=== PATIENT | female | born 1935 | race Caucasian/White ===

== ENCOUNTER 2020-11-27 07:32 | Outpatient (REF) | payer MEDICARE, SELFPAY ==
[2020-11-27 08:19] LABS: MANUAL DIFF FLAG NO
[2020-11-27 08:23] LABS: Basophils Percent Auto 0.4 % (0-2); Eosinophils Absolute Auto 0.3 X10*3/uL (0.0-0.4); Eosinophils Percent Auto 4.3 % (0-4); Hematocrit 45.1 % (37-47); Hemoglobin 14.6 g/dl (12.0-16.0); Imm Gran Abs Auto 0.02 X10*3/uL (0.00-0.03); Imm Gran Pct Auto 0.3 % (0.0-0.4); Lymphocytes Absolute Auto 2.3 X10*3/uL (1.2-4.9); Lymphocytes Percent Auto 29.9 % (20-40); Mean Corpuscular HGB Conc 32.4 g/dl (31.0-35.0); Mean Corpuscular Hemoglobin 31.9 pg (27.0-33.0); Mean Corpuscular Volume 98.5 fL (80-98); Mean Platelet Volume 9.6 fL (9.4-12.3); Monocytes Absolute Auto 0.5 X10*3/uL (0.1-1.2); Monocytes Percent Auto 6.6 % (2-11); Neutrophils Absolute Auto 4.5 X10*3/uL (2.0-8.3); Neutrophils Percent Auto 58.5 % (45-73); Platelet Count 233 X10*3/uL (160-400); Red Blood Count 4.58 X10*6/uL (4.20-5.50); Red Cell Distribution Width 13.6 % (11.0-16.0); White Blood Count 7.6 X10*3/uL (4.8-10.8)
[2020-11-27 08:43] LABS: Alanine Aminotransferase 30 U/L (0-31); Albumin Level 4.3 g/dL (3.5-5.0); Alkaline Phosphatase 71 U/L (39-117); Anion Gap 12 (12-20); Aspartate Amino Transferase 37 U/L (5-31); Bilirubin Total 0.4 mg/dL (0.0-1.0); Blood Urea Nitrogen 21 mg/dL (9-16); C Reactive Protein 0.09 mg/dL (< or = 0.50); Calcium 9.6 mg/dL (8.4-10.2); Carbon Dioxide 31 mmol/L (22-29); Chloride 105 mmol/L (96-108); Cholesterol 184 mg/dL; Estimated Glomerular Filt Rate 58; Glucose Random 91 mg/dL (60-115); HDL Cholesterol 77 mg/dL; LDL Cholesterol Calculated 95 mg/dl; Potassium 4.5 mmol/L (3.3-5.1); Sodium 143 mmol/L (135-145); Total Protein 6.9 g/dL (6.5-8.0); Triglycerides 63 mg/dL
[2020-11-27 08:44] LABS: B Type Natriuretic Peptide 141 pg/mL (<100)
[2020-11-27 09:03] LABS: Free T4 (Free Thyroxine) 1.09 ng/dL (0.71-1.85); Thyroid Stimulating Hormone 1.26 uIU/mL (0.32-4.0); Vitamin D 25-OH Total 65.6 ng/mL (>30)
[2020-11-27 09:09] LABS: Erythrocyte Sedimentation Rate 4 MM/HR (0-20)
[2020-11-27 09:33] LABS: Vitamin B12 991 pg/mL (200-900)
== END 2020-11-27 07:33 | disposition home or self-care (01) ==
LOC: HO.LAB 07:32
PROVIDERS: PCP Internal Medicine; Visit Provider Internal Medicine
DX: I42.2 Other hypertrophic cardiomyopathy (principal); E78.00 Pure hypercholesterolemia, unspecified
CPT/HCPCS: 36415; 80053; 80061; 82306; 82607; 82746; 83880; 84439; 84443; 85025; 85652; 86140

== ENCOUNTER 2021-03-26 13:10 | Outpatient (REF) | payer MEDICARE, SELFPAY | END 2021-03-26 13:11 | disposition home or self-care (01) | LOC: HO.LAB 13:10 | PROVIDERS: PCP Internal Medicine; Visit Provider Internal Medicine | DX: Z20.822 Contact with and (suspected) exposure to COVID-19 (principal) | CPT/HCPCS: C9803; U0003; U0005 ==

== ENCOUNTER 2021-05-28 15:15 | Outpatient (REF) | payer MEDICARE, SELFPAY ==
[2021-05-28 15:31] LABS: MANUAL DIFF FLAG NO
[2021-05-28 15:36] LABS: Basophils Absolute Auto 0.1 X10*3/uL (0.0-0.2); Basophils Percent Auto 0.7 % (0-2); Eosinophils Absolute Auto 0.2 X10*3/uL (0.0-0.4); Eosinophils Percent Auto 2.9 % (0-4); Hematocrit 44.3 % (37.0-47.0); Hemoglobin 14.5 g/dl (12.0-16.0); Imm Gran Abs Auto 0.02 X10*3/uL (0.00-0.03); Imm Gran Pct Auto 0.2 % (0.0-0.4); Lymphocytes Percent Auto 24.4 % (20-40); Mean Corpuscular HGB Conc 32.7 g/dl (31.0-35.0); Mean Corpuscular Hemoglobin 31.3 pg (27.0-33.0); Mean Corpuscular Volume 95.7 fL (80.0-98.0); Mean Platelet Volume 9.5 fL (9.4-12.3); Monocytes Absolute Auto 0.7 X10*3/uL (0.1-1.2); Monocytes Percent Auto 8.2 % (2-11); Neutrophils Absolute Auto 5.2 x10*3/uL (2.0-8.3); Neutrophils Percent Auto 63.6 % (45-73); Platelet Count 246 X10*3/uL (160-400); Red Blood Count 4.63 X10*6/uL (4.20-5.50); Red Cell Distribution Width 13.9 % (11.0-16.0); White Blood Count 8.2 X10*3/uL (4.8-10.8)
[2021-05-28 15:50] LABS: D Dimer High Sensitivity < 150 NG/ML
[2021-05-28 15:51] LABS: Alanine Aminotransferase 26 U/L (0-31); Albumin Level 4.4 g/dL (3.5-5.0); Alkaline Phosphatase 75 U/L (39-117); Anion Gap 14 (12-20); Aspartate Amino Transferase 38 U/L (5-31); Bilirubin Total 0.3 mg/dL (0.0-1.0); Blood Urea Nitrogen 23 mg/dL (9-16); C Reactive Protein 0.08 mg/dL (< or = 0.50); Calcium 9.9 mg/dL (8.4-10.2); Carbon Dioxide 28 mmol/L (22-29); Chloride 104 mmol/L (96-108); Estimated Glomerular Filt Rate > 60; Glucose Random 96 mg/dL (60-115); Potassium 5.1 mmol/L (3.3-5.1); Sodium 141 mmol/L (135-145); Total Protein 7.3 g/dL (6.5-8.0)
[2021-05-28 16:01] LABS: B Type Natriuretic Peptide 245 pg/mL (<100)
[2021-05-28 16:12] LABS: Thyroid Stimulating Hormone 1.07 uIU/mL (0.32-4.0)
[2021-05-28 16:34] LABS: Erythrocyte Sedimentation Rate 7 MM/HR (0-20)
== END 2021-05-28 15:16 | disposition home or self-care (01) ==
LOC: HO.LAB 15:15
PROVIDERS: PCP Internal Medicine; Visit Provider Internal Medicine
DX: M79.89 Other specified soft tissue disorders (principal)
CPT/HCPCS: 36415; 80053; 83880; 84443; 85025; 85379; 85652; 86140

== ENCOUNTER 2022-04-30 12:48 | Outpatient (REF) | payer MEDICARE, SELFPAY ==
--- NOTE | ~2022-04-30 | MM_ITS ---
EXAMINATION: BONE DENSITOMETRY CLINICAL INDICATION: Age-related osteoporosis without current pathological fracture. COMPARISON: Previous BD dated 03/12/2020 and baseline BD dated 10/23/2008. TECHNIQUE: Using a Xtellus DXA System (software version: 13.1) manufactured by [employer], dual-energy x-ray absorptiometry was performed of the lumbar spine and left hip. The images are of good technical quality. Summary results are attached. FINDINGS: AP SPINE L1-L3 (excluding L4): The data of L1-L4 has been changed to exclude the L4 vertebral body, because degenerative sclerosis at this level may cause overestimation of lumbar spine density. Current: BMD 1.203 g/cm2, Z-score 2.8, T-score 0.3, normal, 1.8% increase from previous, 8.9% decrease from baseline (<5% change is not significant). Prior: BMD 1.182 g/cm2. Baseline: BMD 1.321 g/cm2. LEFT FEMUR, NECK: Current: BMD 0.469 g/cm2, Z-score -1.3, T-score -4.1, osteoporosis. Prior: BMD 0.582 g/cm2. Baseline: BMD 0.639 g/cm2. LEFT FEMUR, TOTAL: Current: BMD 0.505 g/cm2, Z-score -1.2, T-score -4.0, osteoporosis, 19.1% decrease from previous, 27.7% decrease from baseline (<5% change is not significant). Prior: BMD 0.624 g/cm2. Baseline: BMD 0.698 g/cm2. IDENTIFIED RISK FACTORS: Menopause, low body weight. HISTORY OF FRACTURE: None listed. MEDICATIONS: Calcium supplements or multivitamin, vitamin D, bisphosphonate. MM/XR DEXA axial skeleton IMPRESSION: 1. DIAGNOSIS: Osteoporosis based on the lowest T-score value of -4.1 in the femoral neck applying World Health Organization criteria. 2. 10-YEAR FRACTURE RISK PREDICTION, FRAX: According to the guidelines, FRAX calculation should only be performed on patients in the osteopenia bone density category. Therefore, FRAX was not performed on this patient. 3. Treatment Recommendations: NOF guidelines recommend consideration for treatment in postmenopausal women and men age 50 and older presenting with the following: -A hip or vertebral (clinical or morphometric) fracture. -T-score less than or equal to -2.5 at the femoral neck or spine after appropriate evaluation to exclude secondary causes. -Low bone mass at the hip or spine and a 10-year fracture probability by FRAX of greater than or equal to 3% for hip fracture or greater than or equal to 20% for major osteoporotic fracture based on the [place] adapted WHO algorithm. 4. Other Recommendations: All treatment decisions require clinical judgment and consideration of individual patient factors, including patient preferences, comorbidities, previous drug use, risk factors not captured in the FRAX model (e.g. frailty, falls, vitamin D deficiency, increased bone turnover, interval significant decline in bone density) and possible under or overestimation of fracture risk by FRAX. Additional medical evaluation for secondary cause of low bone mineral density may be appropriate. FUTURE SCAN RECOMMENDATION: People with diagnosed cases of osteoporosis or at high risk for fracture should have regular bone mineral density tests. For patients eligible for Medicare, routine testing is allowed once every 2 years. The testing frequency can be increased to one year for patients who have rapidly progressing disease, those who are receiving or discontinuing medical therapy to restore bone mass, or have additional risk factors.
== END 2022-04-30 12:49 | disposition home or self-care (01) ==
LOC: HO.MAMMO 12:48
PROVIDERS: Visit Provider Internal Medicine
DX: M81.0 Age-related osteoporosis without current pathological fracture (principal)
CPT/HCPCS: 77080

== ENCOUNTER 2022-05-06 08:02 | Outpatient (REF) | payer MEDICARE, SELFPAY ==
[2022-05-06 08:18] LABS: MANUAL DIFF FLAG NO
[2022-05-06 08:44] LABS: Basophils Percent Auto 0.4 % (0-2); Eosinophils Absolute Auto 0.2 X10*3/uL (0.0-0.4); Eosinophils Percent Auto 2.7 % (0-4); Hematocrit 44.2 % (37.0-47.0); Hemoglobin 14.5 g/dl (12.0-16.0); Imm Gran Abs Auto 0.03 X10*3/uL (0.00-0.03); Imm Gran Pct Auto 0.4 % (0.0-0.4); Lymphocytes Absolute Auto 2.3 X10*3/uL (1.2-4.9); Lymphocytes Percent Auto 27.7 % (20-40); Mean Corpuscular HGB Conc 32.8 g/dl (31.0-35.0); Mean Corpuscular Hemoglobin 32.2 pg (27.0-33.0); Mean Platelet Volume 9.7 fL (9.4-12.3); Monocytes Absolute Auto 0.6 X10*3/uL (0.1-1.2); Monocytes Percent Auto 7.3 % (2-11); Neutrophils Absolute Auto 5.2 x10*3/uL (2.0-8.3); Neutrophils Percent Auto 61.5 % (45-73); Platelet Count 230 X10*3/uL (160-400); Red Blood Count 4.51 X10*6/uL (4.20-5.50); White Blood Count 8.5 X10*3/uL (4.8-10.8)
[2022-05-06 09:14] LABS: B Type Natriuretic Peptide 218 pg/mL (<100)
[2022-05-06 09:17] LABS: Alanine Aminotransferase 32 U/L (0-31); Albumin Level 4.5 g/dL (3.5-5.0); Alkaline Phosphatase 77 U/L (39-117); Anion Gap 14 (12-20); Aspartate Amino Transferase 35 U/L (5-31); Bilirubin Total 0.6 mg/dL (0.0-1.0); Blood Urea Nitrogen 23 mg/dL (9-16); Calcium 9.6 mg/dL (8.4-10.2); Carbon Dioxide 29 mmol/L (22-29); Chloride 104 mmol/L (96-108); Cholesterol 180 mg/dL; Estimated Glomerular Filt Rate 50; Glucose Random 95 mg/dL (60-115); HDL Cholesterol 69 mg/dL; LDL Cholesterol Calculated 101 mg/dl; Potassium 4.9 mmol/L (3.3-5.1); Sodium 142 mmol/L (135-145); Total Protein 7.1 g/dL (6.5-8.0); Triglycerides 50 mg/dL
[2022-05-06 09:42] LABS: Thyroid Stimulating Hormone 1.19 uIU/mL (0.32-4.0); Vitamin D 25-OH Total 57.2 ng/mL (>30)
[2022-05-06 10:04] LABS: Folate > 20.0 ng/mL (> or = 4.0); Vitamin B12 1252 pg/mL (200-900)
== END 2022-05-06 08:03 | disposition home or self-care (01) ==
LOC: HO.LAB 08:02
PROVIDERS: Absent Provider Internal Medicine; PCP Internal Medicine; Visit Provider Internal Medicine
DX: F41.1 Generalized anxiety disorder (principal); I42.2 Other hypertrophic cardiomyopathy; E78.00 Pure hypercholesterolemia, unspecified
CPT/HCPCS: 36415; 80053; 80061; 82306; 82607; 82746; 83880; 84439; 84443; 85025

== ENCOUNTER 2023-04-06 08:47 | Outpatient (REF) | payer MEDICARE, SELFPAY ==
[2023-04-06 09:22] LABS: MANUAL DIFF FLAG NO
[2023-04-06 09:46] LABS: Basophils Absolute Auto 0.1 X10*3/uL (0.0-0.2); Basophils Percent Auto 0.6 % (0-2); Eosinophils Absolute Auto 0.2 X10*3/uL (0.0-0.4); Eosinophils Percent Auto 2.7 % (0-4); Hematocrit 43.3 % (37.0-47.0); Hemoglobin 14.1 g/dl (12.0-16.0); Imm Gran Abs Auto 0.02 X10*3/uL (0.00-0.03); Imm Gran Pct Auto 0.2 % (0.0-0.4); Lymphocytes Absolute Auto 2.1 X10*3/uL (1.2-4.9); Lymphocytes Percent Auto 25.6 % (20-40); Mean Corpuscular HGB Conc 32.6 g/dl (31.0-35.0); Mean Corpuscular Hemoglobin 32.3 pg (27.0-33.0); Mean Corpuscular Volume 99.3 fL (80.0-98.0); Monocytes Absolute Auto 0.8 X10*3/uL (0.1-1.2); Monocytes Percent Auto 9.3 % (2-11); Neutrophils Absolute Auto 5.1 x10*3/uL (2.0-8.3); Neutrophils Percent Auto 61.6 % (45-73); Platelet Count 228 X10*3/uL (160-400); Red Blood Count 4.36 X10*6/uL (4.20-5.50); Red Cell Distribution Width 13.2 % (11.0-16.0); White Blood Count 8.2 X10*3/uL (4.8-10.8)
[2023-04-06 10:38] LABS: Appearance Urine Turbid; Color Urine Yellow; Glucose Urine UA Negative (Negative); Leukocyte Esterase Urine Negative (Negative); Nitrite Urine Negative (Negative); Urine Blood Negative (Negative); Urine Ketones Negative (Negative); Urine Protein Negative (Neg-Trace)
[2023-04-06 10:39] LABS: Alanine Aminotransferase 22 U/L (0-31); Albumin Level 4.2 g/dL (3.5-5.0); Alkaline Phosphatase 65 U/L (39-117); Anion Gap 11 (12-20); Aspartate Amino Transferase 31 U/L (5-31); Bilirubin Total 0.5 mg/dL (0.0-1.0); Blood Urea Nitrogen 27 mg/dL (9-16); Calcium 9.3 mg/dL (8.4-10.2); Carbon Dioxide 29 mmol/L (22-29); Chloride 105 mmol/L (96-108); Cholesterol 192 mg/dL (<200); Estimated Glomerular Filt Rate 50; Glucose Random 97 mg/dL (60-115); HDL Cholesterol 72 mg/dL (>40); LDL Cholesterol Calculated 110 mg/dL (<100); Potassium 4.5 mmol/L (3.3-5.1); Sodium 140 mmol/L (135-145); Triglycerides 54 mg/dL (<150)
[2023-04-06 10:42] LABS: Bacteria Urine None Seen (None Seen); Hyaline Casts Urine 0-2 /LPF (0-2); RBC Urine 0-2 /HPF (0-2); Squamous Epithelial Cell Urine 0-2 /HPF (0-2); WBC Urine 0-5 /HPF (0-5)
[2023-04-06 10:45] LABS: Free T4 (Free Thyroxine) 1.03 ng/dL (0.71-1.85); Thyroid Stimulating Hormone 1.14 uIU/mL (0.32-4.0); Vitamin D 25-OH Total 70.6 ng/mL (>30)
[2023-04-06 10:50] LABS: Folate 14.9 ng/mL (> or = 4.0); Vitamin B12 921 pg/mL (200-900)
== END 2023-04-06 08:48 | disposition home or self-care (01) ==
LOC: HO.LAB 08:47
PROVIDERS: PCP Internal Medicine; Visit Provider Internal Medicine
DX: I42.2 Other hypertrophic cardiomyopathy (principal); E78.00 Pure hypercholesterolemia, unspecified; M81.0 Age-related osteoporosis without current pathological fracture
CPT/HCPCS: 36415; 80053; 80061; 81001; 82306; 82607; 82746; 84439; 84443; 85025

== ENCOUNTER 2023-04-17 13:17 | Outpatient (AMB) | payer MEDICARE, SELFPAY ==
[2023-04-17 13:48] VITALS: BP 134/72; PULSE 71; O2SAT 97; BMI 22.1
--- NOTE | 2023-04-17 13:48 | AM.OFFWIN_ITS ---
Intake Vital Signs 04/17/23 13:48 Height 4 ft 9 in Weight 102 lb BMI 22.1 BP 134/72 Blood Pressure Location Lt brachial Position Sitting Pulse 71 Pulse Source Pulse Oximeter Pulse Oximetry (%) 97 Oxygen Delivery Method Room Air Intake Visit Reasons: EP Fell/ Lower RT leg injury DOI 04/09 Intake Note: Patient fell and injured her right lower leg on 04/09. Patient Tobacco Use Status: Never used Tobacco Allergies erythromycin base Allergy (Unknown, Verified 04/17/23 13:50) Unknown trazodone Allergy (Unknown, Verified 04/17/23 13:50) Unknown Do you need a note to return to daycare/school/sports/work: No HPI HPI Comments History of Present Illness Details This is a 88-year-old female who presents to the office today for sick visit. Patient complaining of right lower extremity bruising following a fall that occurred on 04/09/2023. Patient states she tripped and fell on to her right knee approximately 1 week ago. She states that she developed right knee swelling and mild ecchymosis at that time. Her swelling and pain have improved the patient has increased bruising of the entire right lower extremity. She denies any lightheadedness/dizziness or chest pain/shortness of breath. She denies using any anticoagulation other than aspirin but she states that she stopped taking her aspirin 5 days ago due to the bruising. 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 Hyperparathyroidism Hearing loss Hypertrophic cardiomyopathy Peripheral vascular disease Osteoporosis Surgical History History of myringotomy History of colonoscopy Family History (Updated 12/30/22 @ 15:39 by Piedad Alston CMA) Father Leukemia Mother Dementia Stroke Social History Housing: House Alcohol intake: current Alcohol intake frequency: a few times a month Patient Tobacco Use Status: Never used Tobacco e-Cigarette/Vaping Use: Never Used Second Hand Smoke Exposure: No service: No Current occupational status: retired Cognitive needs: No Hearing needs: No Vision needs: Yes Review of Systems Const All systems reviewed & are unremarkable except as noted in HPI and below Reports no additional complaints Eyes Reports no additional complaints ENT Reports no additional complaints Card Reports no additional complaints Resp Reports no additional complaints GI Reports no additional complaints Reports no additional complaints Musc Reports no additional complaints Skin/Breast Reports system reviewed and no additional complaints, except as documented Neuro Reports no additional complaints Psych Reports no additional complaints Endo Reports no additional complaints Angelito/Lymph Reports no additional complaints Aller/Immun Reports no additional complaints Physical Exam Vital Signs: Last Vital Signs Pulse 71 04/17/23 13:48 BP 134/72 04/17/23 13:48 Pulse Ox 97 04/17/23 13:48 Oxygen Delivery Method Room Air 04/17/23 13:48 BMI result Body Mass Index 22.1 Const Other: Vital signs reviewed. Constitutional: Non-toxic appearing. No acute distress. Well-developed and well-nourished. HEENT: Normocephalic and atraumatic. Skin: Significant ecchymosis of the right lower extremity extending from the superior pole of the patella down to her ankle. No significant bony tenderness to palpation of the knee, tibial/fibula, or ankle. No calf tenderness to palpation or swelling. Neck: Full and painless range of motion. No cervical lymphadenopathy. Cardio: Regular rate. No lower extremity edema. No JVD. Pulmonary: No respiratory distress. No accessory muscle usage. Gastrointestinal: Soft, nontender, and nondistended in all 4 quadrants. Genitourinary: No CVA tenderness. Musculoskeletal: Normal range of motion in joints throughout the body. No deformity or other signs of injury. Neuro: Alert and oriented x4. Cranial nerves 2-12 grossly intact. No focal deficits appreciated. Psych: Normal mood and affect. Assessment & Plan Assessment & Plan (1) Right leg injury: Code(s): S89.91XA - Unspecified injury of right lower leg, initial encounter Qualifiers: Encounter type: initial encounter Qualified Code(s): S89.91XA - Unspecified injury of right lower leg, initial encounter Plan This is an 88-year-old female presenting to the office with right lower extremity ecchymosis following a fall that occurred on 04/09/2023. Patient states the pain and the swelling have significantly improved but she started to develop ecchymosis from her knee to her ankle. She does not utilize anticoagulation but she takes a baby aspirin, which she stopped taking 5 days ago because of the ecchymosis. She has no calf swelling or calf tenderness to palpation to suggest DVT. She has no significant bony tenderness to palpation to suggest fracture or dislocation. Patient very likely just has a large contusion secondary to her fall, which was worsened by gravity and heat application as well as aspirin. She has no lightheadedness/dizziness or chest pain/shortness of breath to suggest acute anemia. We will obtain an x-ray of the right knee, right tibial/fibula, and right ankle to definitively rule out acute bony process. I recommended application of ice as well as elevation of the right lower extremity. Patient should discontinue aspirin use until the bruising has resolved. Patient feels comfortable going home and I do not bel ieve the patient has a life-threatening diagnosis at this time. Patient was advised to proceed to the emergency room if she were to develop persistent/worsening symptoms, calf swelling, or any symptoms of anemia. Patient verbalized her understanding and she is in agreement with the plan. Orders: Orders XR tibia fibula RT 2V Today S89.91XA - Unspecified injury of right lower leg, initial encounter XR knee RT 2V Today S89.91XA - Unspecified injury of right lower leg, initial encounter XR ankle RT 2V Today S89.91XA - Unspecified injury of right lower leg, initial encounter Coding Level of Care Code Est Pt Level 3 (12328) Diagnoses Injury of right lower extremity, initial encounter S89.91XA Encounter type: initial encounter
== END 2023-04-17 14:32 | disposition home or self-care (01) ==
PROVIDERS: PCP Internal Medicine; Visit Provider Physician Assistant Medical
DX: S89.91XA Unspecified injury of right lower leg, initial encounter (principal)
CPT/HCPCS: 99213

== ENCOUNTER 2023-04-17 14:11 | Outpatient (REF) | payer MEDICARE, SELFPAY ==
--- NOTE | ~2023-04-17 | XR_ITS ---
EXAMINATION: Right tibia and fibula, right ankle and right knee. CLINICAL INDICATION: Injury, pain. COMPARISON: None. TECHNIQUE: Right tibia and fibula 2 views. Right knee 2 views. Right ankle 3 views. FINDINGS: Right knee: There is loss of tricompartment joint space with lateral and patellofemoral compartment periarticular spurring. There is calcification of the menisci. No bony erosive changes. Minimal suprapatellar joint effusion. Right tibia and fibula: The bony cortex is intact. Normal density seen throughout the tibial and fibular bone marrow. The soft tissues are normal. No fracture seen. Right ankle: The ankle mortise and subtalar joints are normal. There is mild lateral malleolar soft tissue swelling. No visible acute fracture or dislocation seen. XR/XR tibia fibula RT 2V IMPRESSION: 1. No acute fracture or dislocation right knee, right tibia and fibula. 2. Degenerative tricompartment changes with periarticular spurring right knee. Minimal suprapatellar joint effusion. 3. There is mild lateral malleolar soft tissue swelling but no visible acute fracture or dislocation right ankle.
--- NOTE | ~2023-04-17 | XR_ITS ---
EXAMINATION: Right tibia and fibula, right ankle and right knee. CLINICAL INDICATION: Injury, pain. COMPARISON: None. TECHNIQUE: Right tibia and fibula 2 views. Right knee 2 views. Right ankle 3 views. FINDINGS: Right knee: There is loss of tricompartment joint space with lateral and patellofemoral compartment periarticular spurring. There is calcification of the menisci. No bony erosive changes. Minimal suprapatellar joint effusion. Right tibia and fibula: The bony cortex is intact. Normal density seen throughout the tibial and fibular bone marrow. The soft tissues are normal. No fracture seen. Right ankle: The ankle mortise and subtalar joints are normal. There is mild lateral malleolar soft tissue swelling. No visible acute fracture or dislocation seen. XR/XR ankle RT 2V IMPRESSION: 1. No acute fracture or dislocation right knee, right tibia and fibula. 2. Degenerative tricompartment changes with periarticular spurring right knee. Minimal suprapatellar joint effusion. 3. There is mild lateral malleolar soft tissue swelling but no visible acute fracture or dislocation right ankle.
--- NOTE | ~2023-04-17 | XR_ITS ---
EXAMINATION: Right tibia and fibula, right ankle and right knee. CLINICAL INDICATION: Injury, pain. COMPARISON: None. TECHNIQUE: Right tibia and fibula 2 views. Right knee 2 views. Right ankle 3 views. FINDINGS: Right knee: There is loss of tricompartment joint space with lateral and patellofemoral compartment periarticular spurring. There is calcification of the menisci. No bony erosive changes. Minimal suprapatellar joint effusion. Right tibia and fibula: The bony cortex is intact. Normal density seen throughout the tibial and fibular bone marrow. The soft tissues are normal. No fracture seen. Right ankle: The ankle mortise and subtalar joints are normal. There is mild lateral malleolar soft tissue swelling. No visible acute fracture or dislocation seen. XR/XR knee RT 2V IMPRESSION: 1. No acute fracture or dislocation right knee, right tibia and fibula. 2. Degenerative tricompartment changes with periarticular spurring right knee. Minimal suprapatellar joint effusion. 3. There is mild lateral malleolar soft tissue swelling but no visible acute fracture or dislocation right ankle.
== END 2023-04-17 14:12 | disposition home or self-care (01) ==
LOC: HO.HMGCX 14:11
PROVIDERS: Visit Provider Physician Assistant Medical
DX: S89.91XA Unspecified injury of right lower leg, initial encounter (principal); M25.461 Effusion, right knee; R60.0 Localized edema
CPT/HCPCS: 73560; 73590; 73600

== ENCOUNTER 2023-07-06 14:03 | Outpatient (AMB) | payer MEDICARE, SELFPAY ==
[2023-07-06 14:06] VITALS: BP 128/68; PULSE 72; O2SAT 97; BMI 22.1
--- NOTE | 2023-07-06 14:06 | MHC.PC.OV ---
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 Allergies erythromycin base Allergy (Unknown, Verified 07/06/23 14:06) Unknown trazodone Allergy (Unknown, Verified 07/06/23 14:06) Unknown Medication List - Last Reconciled 07/06/23 by Nayeli Whitehead MD alendronate (Fosamax) 70 mg PO QWEEK 90 days ascorbic acid (vitamin C) 500 mg PO DAILY aspirin (Adult Aspirin Regimen) 81 mg PO DAILY calcium carbonate 600 mg PO DAILY cholecalciferol (vitamin D3) 25 mcg PO DAILY fluticasone propionate 50 mcg/actuation (Flonase Allergy Relief) 1 spray intranasal DAILY glucosamine sulfate (Glucosamine) 500 mg PO DAILY metoprolol succinate ER 25 mg PO DAILY mirtazapine 30 mg PO BEDTIME multivitamin 1 tab PO DAILY omega-3 fatty acids (Fish Oil Concentrate) 1,000 mg PO DAILY topiramate 25 mg PO BID Tobacco use date assessed: 07/06/23 Fall risk assessment: 1 Fall in past year (04/09/23) Last assessed Fall Risk: 07/06/23 HPI 6mth f/u HPI Details 88-year-old female with a history of osteoporosis hypertrophic cardiomyopathy generalized anxiety disorder coming in for follow-up. Last seen in December 2022. Review of the notes has followed up with Cardiology Dr. Isaacs echocardiogram done in March no changes stable left ventricular function diagnosis of primary hypertension and mitral valve insufficiency on metoprolol patient has mitral valve insufficiency and tricuspid valve insufficiency question of echodensity on the mitral valve in which recommended SUDHIR but would like to hold off. But this has been unchanged since 2019. April 2023 Urgent Center visit right lower extremity bruising following a fall 04/09/2023. X-rays done showed arthritis but no fractures. With regards to the postnasal drip patient was seen December 2022 by the ENT hearing test hearing has recovered no effusion. new cardiology Dr. Diaz. 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 Hyperparathyroidism Hearing loss Hypertrophic cardiomyopathy Peripheral vascular disease Osteoporosis Surgical History History of myringotomy History of colonoscopy Family History (Updated 12/30/22 @ 15:39 by Piedad Alston [facility]) Father Leukemia Mother Dementia Stroke Social History Housing: House Alcohol intake: current Alcohol intake frequency: a few times a month Patient Tobacco Use Status: Never used Tobacco e-Cigarette/Vaping Use: Never Used Second Hand Smoke Exposure: No service: No Current occupational status: retired Cognitive needs: No Hearing needs: No Vision needs: Yes Questionnaire PHQ-9 Over the last 2 weeks, how often have you been bothered by any of the following problems? 1. Little interest or pleasure in doing things: not at all 2. Feeling down, depressed, or hopeless: not at all 3. Trouble falling or staying asleep, or sleeping too much: not at all 4. Feeling tired or having little energy: not at all 5. Poor appetite or overeating: not at all 6. Feeling bad about yourself - or that you are a failure or have let yourself or your family down: not at all 7. Trouble concentrating on things, such as reading the newspaper or watching television: not at all 8. Moving or speaking so slowly that other people could have noticed. Or the opposite - being so fidgety or restless that you have been moving around a lot more than usual: not at all 9. Thoughts that you would be better off or of hurting yourself in some way: not at all Total score: 0 Depression Screening Interpretation: Negative Depression Screening Done: Yes 89214 - PHQ-9 Billing: Yes Source: Developed by Drs. Ronald Rosenbaum, Camilla Hedrick, Herb Rock and colleagues, with an educational maritza from [employer]. Thrive Questionnaire Date Thrive assessed: 12/30/22 AUDIT C Alcohol Use Questionnaire (AUDIT-C) 1. How often do you have a drink containing alcohol?: 2-4 times a month 2. How many drinks containing alcohol do you have on a typical day when you are drinking?: 1 or 2 3. How often do you have six or more drinks on one occasion?: Never Total Score: 2 Score Reviewed/Action Taken: No NIYA-7 AMB Questionnaire NIYA-7 Date NIYA - 7 assessed: 07/06/23 Feeling nervous, anxious, or on edge: 0 = Not at all Not being able to stop or control worryin = Not at all Worrying too much about different things: 0 = Not at all Trouble relaxin = Not at all Being so restless that it is hard to sit still: 0 = Not at all Becoming easily annoyed or irritable: 0 = Not at all Feeling afraid as if something awful might happen: 0 = Not at all Total NIYA-7 score (0-4 normal; 5-9 mild; 10-14 moderate; 15-21 severe): 0 Source: Developed by Drs. Ronald Rosenbaum, Camilla Hedrick, Herb Rock and colleagues, with an educational maritza from [employer]. Physical exam (Primary Care) Vital Signs: Last Vital Signs Pulse 72 07/06/23 14:06 BP 128/68 07/06/23 14:06 Pulse Ox 97 07/06/23 14:06 Oxygen Delivery Method Room Air 07/06/23 14:06 BMI result Body Mass Index 22.1 Tobacco/Smoking Status: Tobacco use Status Tobacco use date assessed 07/06/23 07/06/23 14:07 Patient Tobacco Use Status Never used Tobacco 07/06/23 14:07 e-Cigarette/Vaping Use Never Used 07/06/23 14:07 PHQ-9: PHQ-9 Score PHQ-9: Total score 0 07/06/23 14:07 Depression Screening Interpretation: Negative Thrive Assessment: Date of Thrive Assessment Date Thrive assessed 12/30/22 07/06/23 14:07 Const General: alert; No acute distress HENMT Other: impacted cerumen bilateral Eyes Conjunctivae: conjunctivae normal Resp Auscultation: clear to auscultation bilaterally Cardio Rate: regular rate Rhythm: regular rhythm GI Inspection: Yes normal to inspection Extrem General: Yes normal to inspection and No edema Office Procedures Cerumen Removal From which ear canal was the cerumen removed: bilateral Removal: otoscope w/curette and cerumen loop/spoon Notes: patient tolerated procedure well, no complications and ear canal clear [id number] Wax Removal by Spoon/Curette Assessment and Plan Assessment & Plan (1) Osteoporosis: Comment: February 2020, April 2022 Code(s): M81.0 - Age-related osteoporosis without current pathological fracture Qualifiers: Osteoporosis type: age-related Presence of current pathological fracture: without current pathological fracture Qualified Code(s): M81.0 - Age-related osteoporosis without current pathological fracture Plan: Patient is up-to-date with bone density and is on alendronate. Next bone density is April this year (2) Mitral insufficiency: Code(s): I34.0 - Nonrheumatic mitral (valve) insufficiency Plan: Patient is being followed up by Cardiology and there was a concern on an echodensity on the mitral valve but SUDHIR was deferred (3) Sensorineural hearing loss: Code(s): H90.5 - Unspecified sensorineural hearing loss Plan: This has recovered from the note of ENT (4) Right leg injury: Code(s): S89.91XA - Unspecified injury of right lower leg, initial encounter Qualifiers: Encounter type: initial encounter Qualified Code(s): S89.91XA - Unspecified injury of right lower leg, initial encounter Plan: Resolved (5) Generalized anxiety disorder: Code(s): F41.1 - Generalized anxiety disorder Plan: Continue with present medication. (6) Impacted cerumen of both ears: Code(s): H61.23 - Impacted cerumen, bilateral Plan: scoop used Bilateral TM intact, no irrigation Orders: Orders US venous duplex LE RT Today S89.91XA - Unspecified injury of right lower leg, initial encounter Coding Level of Care Code Est Pt Level 4 (43038) Diagnoses Age-related osteoporosis without current pathological fracture M81.0 Osteoporosis type: age-related Presence of current pathological fracture: without current pathological fracture Mitral insufficiency I34.0 Sensorineural hearing loss H90.5 Injury of right lower extremity, initial encounter S89.91XA Encounter type: initial encounter Generalized anxiety disorder F41.1 Impacted cerumen of both ears H61.23 CPT Codes Office Procedure - CPT: 74861-[id number] Wax Removal by Spoon/Curette ([id number])
== END 2023-07-06 15:00 | disposition home or self-care (01) ==
PROVIDERS: PCP Internal Medicine; Visit Provider Internal Medicine
DX: M81.0 Age-related osteoporosis without current pathological fracture (principal); I34.0 Nonrheumatic mitral (valve) insufficiency; H90.5 Unspecified sensorineural hearing loss; S89.91XA Unspecified injury of right lower leg, initial encounter; F41.1 Generalized anxiety disorder; H61.23 Impacted cerumen, bilateral
CPT/HCPCS: 69210; 99214

== ENCOUNTER 2023-07-06 15:20 | Outpatient (REF) | payer MEDICARE, SELFPAY ==
--- NOTE | ~2023-07-06 | US_ITS ---
EXAMINATION: US VENOUS ULTRASOUND WITH DOPPLER LOWER EXTREMITY, RIGHT CLINICAL INFORMATION: Unspecified injury of right lower leg, initial encounter Right lower extremity swelling/edema COMPARISON: None available. TECHNIQUE: Ultrasound of the deep veins is performed from the hip to the calf with compression sonography and color and pulse Doppler assessment. Spectral analysis with color-flow imaging is performed. FINDINGS: There is normal venous compression and respiratory variation. The visualized common femoral vein, superficial femoral vein, profunda femoral vein, popliteal vein, and the posterior tibial and peroneal veins shows no evidence of deep venous thrombosis. US/US venous duplex LE RT IMPRESSION: No DVT demonstrated in the right lower extremity.
== END 2023-07-06 15:21 | disposition home or self-care (01) ==
LOC: HO.US 15:20
PROVIDERS: Visit Provider Internal Medicine
DX: M79.661 Pain in right lower leg (principal); S89.91XA Unspecified injury of right lower leg, initial encounter
CPT/HCPCS: 93971

== ENCOUNTER 2023-10-15 17:34 | Emergency (ER) | payer MEDICARE, SELFPAY ==
--- NOTE | ~2023-10-15 | CT_ITS ---
EXAMINATION: CT head/brain wo IV con, CT cervical spine wo IV con, CT facial bones wo IV con INDICATION INFORMATION: Reason for Exam fall COMPARISON: None TECHNIQUE: Separate noncontrast CT examinations of the head, face, and cervical spine were performed. Coronal and sagittal images were created for each examination at the technologist workstation. This CT examination was performed using dose optimization techniques as appropriate, variously including the following: *Automated exposure control *Adjustment of mA and/or kV according to patient size (this includes techniques or standardized protocols for targeted exams where dose is matched to indication/reason for exam; i.e. extremities or head) *Use of iterative reconstruction technique DLP: 572 mGy-cm (CT head), 208 mGy-cm (CT maxillofacial), 171 mGy-cm (CT cervical spine) FINDINGS: Head: Mild right lateral periorbital soft tissue swelling. No acute calvarial fracture or other acute osseous abnormality. Right mastoid and middle ear opacification. There is no evidence of acute intracranial hemorrhage or territorial infarction. No abnormal mass effect or midline shift is seen. Alvarado to white matter differentiation is well preserved. No extra-axial fluid collections are identified. No hydrocephalus. Proportional prominence of the ventricles and sulcal spaces. Patchy periventricular and deep white matter hypoattenuation is consistent with mild small vessel ischemic changes. Facial Bones: There is no evidence of an acute facial bone fracture. Mild maxillary sinus mucosal thickening. No significant dental disease is visualized. The orbits are unremarkable in appearance. Cervical spine: There is no evidence of acute cervical spine fracture. Vertebral bodies remain normal in height. Upper cervical straightening. Anterolisthesis of C2 on C3 and C3 on C4 on the basis of degenerative facet disease. Advanced multilevel cervical spondylosis. No pre- or paravertebral soft tissue abnormality is identified. Subacute to chronic left posterior third and fourth nondisplaced rib fractures with callus formation. Visualized portions of the lung apices are unremarkable. The thyroid gland is unremarkable. CT/CT cervical spine wo IV con IMPRESSION: 1. No acute intracranial abnormality. 2. Right mastoid and middle ear opacification. Correlate clinically for otomastoiditis. 3. No cervical spine fracture or traumatic malalignment. 4. No facial fracture.
[2023-10-15 17:52] VITALS: BP 165/90; PULSE 85; O2SAT 96
[2023-10-15] MEDS: Diphth,Pertus(ACell),Tet Adult 0.5 ML SYRINGE IM (18:06)
--- NOTE | 2023-10-15 18:15 | ED.GENADULT ---
HPI - General Adult General Chief complaint: Fall Stated complaint: mechanical fall w/ HS, lac on forehead/brow Time Seen by Provider: 10/15/23 17:46 Source: patient, family, RN notes reviewed and old records reviewed Mode of arrival: EMS Limitations: other (Hard of hearing) History of Present Illness HPI narrative: 88-year-old female presents for evaluation of a facial injury. Patient was at home, ambulating independently as she generally does. She reports that she lost her balance and fell forward. This was witnessed by the who states ?she just seemed to lose her balance. ? The patient landed on the right forehead She sustained a laceration to the right eyebrow There was no loss of consciousness. The patient has dull, 4/10 pain to the area where her laceration is of the right forehead Denies any other headache, denies neck pain Denies pain to any extremities The patient did not have any chest pain, lightheadedness or dizziness prior to falling or since falling Related Data Home Medications ?Medication ?Instructions ?Recorded ?Confirmed ascorbic acid (vitamin C) 500 mg 500 mg PO DAILY 05/13/20 07/06/23 chewable tablet aspirin 81 mg tablet,delayed 81 mg PO DAILY 05/13/20 07/06/23 release (Adult Aspirin Regimen) calcium carbonate 600 mg calcium 600 mg PO DAILY 05/13/20 07/06/23 (1,500 mg) tablet cholecalciferol (vitamin D3) 25 25 mcg PO DAILY 05/13/20 07/06/23 mcg (1,000 unit) capsule glucosamine sulfate 500 mg tablet 500 mg PO DAILY 05/13/20 07/06/23 (Glucosamine) metoprolol succinate 25 mg 25 mg PO DAILY 05/13/20 07/06/23 tablet,extended release 24 hr multivitamin 1 tab PO DAILY 05/13/20 07/06/23 omega-3 fatty acids 1,000 mg 1,000 mg PO DAILY 05/13/20 07/06/23 capsule (Fish Oil Concentrate) Previous Rx's ?Medication ?Instructions ?Recorded fluticasone propionate 50 1 spray intranasal DAILY #100 mL 08/06/22 mcg/actuation nasal spray,suspension (Flonase Allergy Relief) alendronate 70 mg tablet (Fosamax) 70 mg PO QWEEK 90 days #13 tabs 04/05/23 mirtazapine 30 mg tablet 30 mg PO BEDTIME #90 caps 07/06/23 topiramate 25 mg tablet 25 mg PO BID #180 caps 07/06/23 nirmatrelvir 150 mg-ritonavir 100 See Rx Instructions PO PER PKG DIR 08/19/23 mg tablets in a dose pack 5 days #20 tabs (Paxlovid) Allergies Allergy/AdvReac Type Severity Reaction Status Date / Time erythromycin base Allergy Unknown Unknown Verified 10/15/23 18:02 trazodone Allergy Unknown Unknown Verified 10/15/23 18:02 Review of Systems Constitutional: Constitutional: Denies chills and Reports headache(s) Eyes: Eyes: Denies blurry vision ENT: Reports headache(s), Denies neck pain and Denies sore throat Cardiovascular: Cardiovascular: Denies chest pain and Denies dyspnea Respiratory: Respiratory: Denies cough and Denies dyspnea Gastrointestinal: Gastrointestinal: Denies abdominal pain, Denies nausea and Denies vomiting Genitourinary: Genitourinary: Denies dysuria Musculoskeletal: Musculoskeletal: Denies back pain, Denies arthralgias and Denies neck pain Integumentary/Breasts: Skin/Breast: Reports wounds Neurologic: Reports headache(s) [facility] Past Medical History Medical History (Updated 10/15/23 @ 18:22 by Grant Hurtado) Impact with sports equipment Fluid level behind tympanic membrane 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 Hyperparathyroidism Hearing loss Hypertrophic cardiomyopathy Peripheral vascular disease Osteoporosis Surgical History History of myringotomy History of colonoscopy Family History Family History (Updated 12/30/22 @ 15:39 by Piedad Alston [facility]) Father Leukemia Mother Dementia Stroke Social History Social History Housing: House Alcohol intake: former Patient Tobacco Use Status: Never used Tobacco Smoked in Last 30 Days: No e-Cigarette/Vaping Use: Never Used Second Hand Smoke Exposure: No Use of substances other than those prescribed or required for medical reasons: No Advance Directives: No Advance Directives Information Provided: No service: No Current occupational status: retired Cognitive needs: No Hearing needs: No Vision needs: Yes Physical Exam ED Vital Signs: Vital Signs - 24 hr 10/15/23 18:23 10/15/23 19:48 Temperature 98.7 F 98.3 F Pulse Rate 81 79 Respiratory Rate 17 16 Blood Pressure 157/83 H 110/67 Pulse Oximetry 97 97 Oxygen Delivery Method Room Air Room Air BMI result Body Mass Index 20.0 Const General: healthy appearing, comfortable, no acute distress, alert and awake Nutritional Appearance: well nourished Orientation/consciousness: patient oriented x3 Eyes Eyelids: Yes eyelids normal Conjunctivae: conjunctivae normal Sclerae: sclerae normal Corneas: corneas normal Pupils: Equal, round and reactive pupils present EOM: EOMs intact bilaterally Neck Neck: Yes full ROM Resp Effort & Inspection: normal respiratory effort, able to speak in complete sentences and not labored Cardio Rate: regular rate Rhythm: regular rhythm Skin Other: Patient has a 2 cm, slightly jagged vertical laceration to the right lateral eyebrow. No active bleed General skin exam: elasticity normal Neuro General: patient oriented x3 Cranial nerves: Yes CN's II-XII intact bilaterally, Yes Equal, round and reactive pupils present and Yes Bilaterally intact EOM present Cognition (Neuro): normal cognition Extrem Other: Moving all extremities well without any obvious deformities Medications Administered Discontinued Medications Generic Name Dose Route Start Last Admin Trade Name Freq PRN Reason Stop Dose Admin Acetaminophen 650 mg 10/15/23 18:08 10/15/23 18:19 Acetaminophen 325 Mg Tablet PO 10/15/23 18:09 650 mg ONCE ONE Administration Diphtheria/Tetanus/Acell Pertussis 0.5 ml 10/15/23 17:52 10/15/23 18:06 Diphth,Pertus(Acell),Tet Adult 0.5 Ml Syringe IM 10/15/23 17:53 0.5 ml .ONCE ONE Administration Lidocaine/Epinephrine 10 ml 10/15/23 17:51 10/15/23 19:50 Lidocaine Hcl 1%/Epi 1:100,000 10 Ml Vial INFILTRATI 10/15/23 17:52 10 ml ONCE ONE Administration Procedures Laceration Laceration 1: Side (If applicable): right Size (cm): 3 Description: irregular Depth: simple, single layer Local Anesthetic: lidocaine 1% and with epi Amount of anesthesia used (mL): 3 Pre-repair: wound explored, irrigated extensively and deep structures intact Skin layer closed with: other (Prolene) Size (cm): 6-0 Number of sutures: 4 Technique: simple, interrupted Medical Decision Making Medical Decision Making MDM Narrative: Patient and her who were present reported mechanical fall without loss of consciousness. She takes a baby aspirin but no anticoagulation. Plan for CT scan of the brain, cervical spine and facial bones. Her laceration will require closure, see procedure note. She is moving all extremities without any difficulty. She has no tenderness with manipulation of the shoulders, elbows, wrists, hips, knees, ankles bilaterally. Plan for CT imaging and wound closure and the patient will likely be discharged home. I did discuss potential rehab consideration with the patient who does not seem interested at this time. Patient's tetanus is due for update as it was last administered in 2017 Differential Diagnosis Differential Diagnoses: The differential diagnosis associated with the presentation includes Mechanical fall Laceration Concussion Intracranial hemorrhage Cervical strain Cervical fracture Independent Interpretation I performed an independent interpretation of an: CT Scan Interpretation: Reviewed CT scan, no obvious intracranial hemorrhage, agree with Radiology interpretation Radiology Impression Discussion of test interpretation with radiology: I have reviewed the radiologist's reading. Radiologist Impression: IMPRESSION: 1. No acute intracranial abnormality. 2. Right mastoid and middle ear opacification. Correlate clinically for otomastoiditis. 3. No cervical spine fracture or traumatic malalignment. 4. No facial fracture. Discharge Plan Discharge Clinical Impression: Facial laceration Patient Disposition: Still a Patient Instructions: Laceration (ED), Care For Your Absorbable Stitches (ED) Additional Instructions: You had 4 sutures placed today. These can be removed in 7-10 days Keep the area clean and dry You may follow-up with your primary doctor or return to the ER to have them removed I recommend applying ice every 4 hours for 10-15 minutes to help reduce swelling Prescriptions: No Action alendronate [Fosamax] 70 mg tablet 70 mg PO QWEEK 90 Days Qty: 13 3RF mirtazapine 30 mg tablet 30 mg PO BEDTIME Qty: 90 2RF topiramate 25 mg tablet 25 mg PO BID Qty: 180 2RF Paxlovid 150-100 mg tablets,dose pack See Rx Instructions PO PER PKG DIR 5 Days Qty: 20 0RF Rx Instructions: PO PER PKG DIR nirmatrelvit 150 mg with Ritonavir 100 mg BID multivitamin Tablet 1 tab PO DAILY glucosamine sulfate [Glucosamine] 500 mg tablet 500 mg PO DAILY Rx Instructions: administer with a meal ascorbic acid (vitamin C) 500 mg tablet,chewable 500 mg PO DAILY omega-3 fatty acids [Fish Oil Concentrate] 1,000 mg capsule 1,000 mg PO DAILY cholecalciferol (vitamin D3) 25 mcg (1,000 unit) capsule 25 mcg PO DAILY calcium carbonate 600 mg calcium (1,500 mg) tablet 600 mg PO DAILY aspirin [Adult Aspirin Regimen] 81 mg tablet,delayed release (DR/EC) 81 mg PO DAILY metoprolol succinate 25 mg tablet extended release 24 hr 25 mg PO DAILY fluticasone propionate [Flonase Allergy Relief] 50 mcg/actuation spray,suspension 1 spray intranasal DAILY Qty: 100 0RF Rx Instructions: administer into each nostril Print Language: Somali
[2023-10-15] MEDS: Acetaminophen 325 MG TABLET 650 MG PO (18:19)
[2023-10-15 18:23] VITALS: BP 157/83; PULSE 81; RESP 17; TEMP 37.1; O2SAT 97
--- NOTE | 2023-10-15 19:00 | PC.NURSE ---
Colin BAPTISTE at bedside placing sutures in pt lack above right eye.
[2023-10-15 19:48] VITALS: BP 110/67; PULSE 79; RESP 16; TEMP 36.8; O2SAT 97
[2023-10-15] MEDS: Lidocaine HCl 1%/Epi 1:100,000 10 ML VIAL INFILTRATI (19:50)
--- NOTE | 2023-10-15 19:53 | MHC.EDTECH ---
Sandwiches and drinks given to patient and
[2023-10-15 21:01] VITALS: BP 103/48; PULSE 81; RESP 14; TEMP 36.9; O2SAT 95
== END 2023-10-15 21:02 | disposition home or self-care (01) ==
PROVIDERS: Emergency Provider Student in an Organized Health Care Education/Training Program; PCP Internal Medicine
DX: S01.111A Laceration without foreign body of right eyelid and periocular area, initial encounter (principal); I73.9 Peripheral vascular disease, unspecified; Z79.82 Long term (current) use of aspirin; W18.30XA Fall on same level, unspecified, initial encounter; Y93.9 Activity, unspecified; Y92.9 Unspecified place or not applicable; Y99.9 Unspecified external cause status
CPT/HCPCS: 12013; 70450; 70486; 72125; 90471; 90715; 99284

== ENCOUNTER 2023-10-22 10:09 | Emergency (ER) | payer MEDICARE, SELFPAY ==
[2023-10-22 10:11] VITALS: BP 161/79; PULSE 84; RESP 19; TEMP 36.6; O2SAT 98; BMI 21.9
--- NOTE | 2023-10-22 10:23 | ED.GENADULT ---
HPI - General Adult General Chief complaint: Wound/Laceration Stated complaint: Suture Removal Time Seen by Provider: 10/22/23 10:15 Source: patient and family Mode of arrival: ambulatory Limitations: no limitations History of Present Illness HPI narrative: Patient is an 88-year-old female who presents emergency department her for suture removal. She was seen in this Emergency Department 06/2024 for laceration to the right temporal region; 4 sutures were placed. They are intact at this time with scabbing overlying the sutures. Related Data Home Medications ?Medication ?Instructions ?Recorded ?Confirmed ascorbic acid (vitamin C) 500 mg 500 mg PO DAILY 05/13/20 07/06/23 chewable tablet aspirin 81 mg tablet,delayed 81 mg PO DAILY 05/13/20 07/06/23 release (Adult Aspirin Regimen) calcium carbonate 600 mg calcium 600 mg PO DAILY 05/13/20 07/06/23 (1,500 mg) tablet cholecalciferol (vitamin D3) 25 25 mcg PO DAILY 05/13/20 07/06/23 mcg (1,000 unit) capsule glucosamine sulfate 500 mg tablet 500 mg PO DAILY 05/13/20 07/06/23 (Glucosamine) metoprolol succinate 25 mg 25 mg PO DAILY 05/13/20 07/06/23 tablet,extended release 24 hr multivitamin 1 tab PO DAILY 05/13/20 07/06/23 omega-3 fatty acids 1,000 mg 1,000 mg PO DAILY 05/13/20 07/06/23 capsule (Fish Oil Concentrate) Previous Rx's ?Medication ?Instructions ?Recorded fluticasone propionate 50 1 spray intranasal DAILY #100 mL 08/06/22 mcg/actuation nasal spray,suspension (Flonase Allergy Relief) alendronate 70 mg tablet (Fosamax) 70 mg PO QWEEK 90 days #13 tabs 04/05/23 mirtazapine 30 mg tablet 30 mg PO BEDTIME #90 caps 07/06/23 topiramate 25 mg tablet 25 mg PO BID #180 caps 07/06/23 nirmatrelvir 150 mg-ritonavir 100 See Rx Instructions PO PER PKG DIR 08/19/23 mg tablets in a dose pack 5 days #20 tabs (Paxlovid) Allergies Allergy/AdvReac Type Severity Reaction Status Date / Time erythromycin base Allergy Unknown Unknown Verified 10/22/23 10:15 trazodone Allergy Unknown Unknown Verified 10/22/23 10:15 Review of Systems Review of Systems: Yes all other systems are reviewed and are negative [facility] Past Medical History Attestation statement: The following information was validated with the patient. 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 Hyperparathyroidism Hearing loss Hypertrophic cardiomyopathy Peripheral vascular disease Osteoporosis Surgical History History of myringotomy History of colonoscopy Family History Family History (Updated 12/30/22 @ 15:39 by Piedad Alston CMA) Father Leukemia Mother Dementia Stroke Social History Social History Housing: House Alcohol intake: former Patient Tobacco Use Status: Never used Tobacco e-Cigarette/Vaping Use: Never Used Second Hand Smoke Exposure: No service: No Current occupational status: retired Cognitive needs: No Hearing needs: No Vision needs: Yes Physical Exam ED Vital Signs: Vital Signs - 24 hr 10/22/23 10:11 Temperature 98 F Pulse Rate 84 Respiratory Rate 19 Blood Pressure 161/79 H Pulse Oximetry 98 Oxygen Delivery Method Room Air BMI result Body Mass Index 21.9 Appearance: Alert.?Oriented to person, place and time. No acute distress.?Normal affect. Eyes: Pupils equal, round and reactive to light.? EOMI. No nystagmus. ENT: Pharynx normal.?? Neck: Normal inspection.? Neck supple.?? Full range of motion. CVS: Heart sounds normal. Normal heart rate and rhythm.? Pulses normal.?? Respiratory: No respiratory distress.? Lung sounds clear to auscultation bilaterally?? Skin: Skin warm and dry.? Normal skin color.? Healing laceration to right temporal region, 4 sutures intact Extremities: No lower extremity edema.? Neuro: Moves all extremities spontaneously. Sensation intact bilaterally. CN II-XII intact. No focal neuro deficits. Ambulates with normal steady gait. Medical Decision Making Medical Decision Making MDM Narrative: patient is an 88-year-old female who presents to the emergency department for suture removal as per HPI. Healing laceration was cleansed with normal saline and a small amount of hydrogen peroxide. The dried blood was able to be up lifted and the sutures were able to be removed. After removal there was a small area; 0.25 cm with scant bleeding, skin adhesive was applied. Tolerated removal well. Free from signs of infection. Discussed worrisome signs and symptoms that would warrant re-evaluation in the emergency department. All questions answered. Stable for discharge. Differential Diagnosis Differential Diagnoses: The differential diagnosis associated with the presentation includes ( Delayed wound healing, laceration, cellulitis) Independent Historian Clinical information obtained from an independent historian. History obtained from or confirmed by: Spouse ( present who confirms history) Prescription Management I considered prescription management with: Pain Medication ( acetaminophen as needed) Discharge Plan Discharge Instructions: Skin Adhesive Care (ED) Prescriptions: No Action alendronate [Fosamax] 70 mg tablet 70 mg PO QWEEK 90 Days Qty: 13 3RF mirtazapine 30 mg tablet 30 mg PO BEDTIME Qty: 90 2RF topiramate 25 mg tablet 25 mg PO BID Qty: 180 2RF Paxlovid 150-100 mg tablets,dose pack See Rx Instructions PO PER PKG DIR 5 Days Qty: 20 0RF Rx Instructions: PO PER PKG DIR nirmatrelvit 150 mg with Ritonavir 100 mg BID multivitamin Tablet 1 tab PO DAILY glucosamine sulfate [Glucosamine] 500 mg tablet 500 mg PO DAILY Rx Instructions: administer with a meal ascorbic acid (vitamin C) 500 mg tablet,chewable 500 mg PO DAILY omega-3 fatty acids [Fish Oil Concentrate] 1,000 mg capsule 1,000 mg PO DAILY cholecalciferol (vitamin D3) 25 mcg (1,000 unit) capsule 25 mcg PO DAILY calcium carbonate 600 mg calcium (1,500 mg) tablet 600 mg PO DAILY aspirin [Adult Aspirin Regimen] 81 mg tablet,delayed release (DR/EC) 81 mg PO DAILY metoprolol succinate 25 mg tablet extended release 24 hr 25 mg PO DAILY fluticasone propionate [Flonase Allergy Relief] 50 mcg/actuation spray,suspension 1 spray intranasal DAILY Qty: 100 0RF Rx Instructions: administer into each nostril Referrals: Ventura,Nayeli Castle MD [Primary Care Provider] - Interventions: ED Discharge Assessment Last Done: 10/22/23 10:39 Print Language: Turkmen
--- NOTE | 2023-10-22 10:35 | PC.NURSE ---
no distress. cleansed/soaked pt's skin prior to suture removal as per NUTTER UP orders at bedside.
[2023-10-22 10:39] VITALS: BP 161/79; PULSE 84; RESP 19; TEMP 36.6; O2SAT 98
== END 2023-10-22 10:55 | disposition home or self-care (01) ==
PROVIDERS: Emergency Provider Emergency Medicine; PCP Internal Medicine
DX: S01.01XD Laceration without foreign body of scalp, subsequent encounter (principal); X58.XXXD Exposure to other specified factors, subsequent encounter
CPT/HCPCS: 99282; 99284

== ENCOUNTER 2024-01-07 15:40 | Emergency (ER) | payer MEDICARE, SELFPAY ==
[2024-01-07 16:38] VITALS: BP 135/77; PULSE 79; RESP 18; TEMP 36.7; O2SAT 98; BMI 21.8
--- NOTE | 2024-01-07 16:40 | ED_ITS ---
HPI - General Adult General Chief complaint: Wound/Laceration Stated complaint: R leg wound with drainage Time Seen by Provider: 01/07/24 19:04 History of Present Illness ED Provider: Dr. Ruff HPI narrative: 88 y/o F patient; PMH Parkinson disease, hyperparathyroidism, hypertrophic cardiomyopathy, PVD; presents from home reporting two weeks of a wound to her right anterior calf that is oozing. The patient states she came in today with concern that it was still not improving. She denies: fever or chills, chest pain, SOB, cough/congestion, nausea/vomiting, abdominal pain. She has been able to ambulate. Related Data Home Medications ?Medication ?Instructions ?Recorded ?Confirmed ascorbic acid (vitamin C) 500 mg 500 mg PO DAILY 05/13/20 07/06/23 chewable tablet aspirin 81 mg tablet,delayed 81 mg PO DAILY 05/13/20 07/06/23 release (Adult Aspirin Regimen) calcium carbonate 600 mg PO DAILY 05/13/20 07/06/23 cholecalciferol (vitamin D3) 25 25 mcg PO DAILY 05/13/20 07/06/23 mcg (1,000 unit) capsule glucosamine sulfate 500 mg tablet 500 mg PO DAILY 05/13/20 07/06/23 (Glucosamine) metoprolol succinate 25 mg 25 mg PO DAILY 05/13/20 07/06/23 tablet,extended release 24 hr multivitamin 1 tab PO DAILY 05/13/20 07/06/23 omega-3 fatty acids 1,000 mg 1,000 mg PO DAILY 05/13/20 07/06/23 capsule (Fish Oil Concentrate) Previous Rx's ?Medication ?Instructions ?Recorded fluticasone propionate 50 1 spray intranasal DAILY #100 mL 08/06/22 mcg/actuation nasal spray,suspension (Flonase Allergy Relief) alendronate 70 mg tablet (Fosamax) 70 mg PO QWEEK 90 days #13 tabs 04/05/23 mirtazapine 30 mg tablet 30 mg PO BEDTIME #90 caps 07/06/23 topiramate 25 mg tablet 25 mg PO BID #180 caps 07/06/23 nirmatrelvir 150 mg-ritonavir 100 See Rx Instructions PO PER PKG DIR 08/19/23 mg tablets in a dose pack 5 days #20 tabs (Paxlovid) cefuroxime axetil 500 mg tablet 500 mg PO BID 7 days #14 tabs 01/07/24 Allergies Allergy/AdvReac Type Severity Reaction Status Date / Time erythromycin base Allergy Unknown Unknown Verified 01/07/24 16:43 trazodone Allergy Unknown Unknown Verified 01/07/24 16:43 Review of Systems Review of Systems: Yes all other systems are reviewed and are negative [facility] Past Medical History Attestation statement: The following information was validated with the patient. 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 Hyperparathyroidism Hearing loss Hypertrophic cardiomyopathy Peripheral vascular disease Osteoporosis Surgical History History of myringotomy History of colonoscopy Family History Family History Father Leukemia Mother Dementia Stroke Social History Social History Housing: House Alcohol intake: former Patient Tobacco Use Status: Never used Tobacco e-Cigarette/Vaping Use: Never Used Second Hand Smoke Exposure: No Advance Directives: No Advance Directives Information Provided: No Do you have a plan to hurt others: No Plan service: No Current occupational status: retired Cognitive needs: No Hearing needs: No Vision needs: Yes Physical Exam ED Vital Signs: Vital Signs - 24 hr 01/07/24 16:38 01/07/24 18:00 Temperature 98.1 F 97.4 F Pulse Rate 79 72 Respiratory Rate 18 17 Blood Pressure 135/77 141/77 H Pulse Oximetry 98 99 Oxygen Delivery Method Room Air Room Air BMI result Body Mass Index 21.8 Patient is afebrile and hemodynamically stable Const General: cooperative and no acute distress HENMT Head: Yes normal to inspection and Yes atraumatic Eyes General: appearance normal, both eyes and all related structures Pupils: Equal, round and reactive pupils present EOM: EOMs intact bilaterally Neck Neck: Yes normal visual inspection, Yes full ROM, Yes supple and No tender Chest Chest palpation & inspection: normal inspection of the chest and normal palpation of entire chest wall Resp Effort & Inspection: normal respiratory effort, able to speak in complete sentences, no cough and no respiratory distress Auscultation: clear to auscultation bilaterally Cardio Rate: regular rate Rhythm: regular rhythm Peripheral pulses: Peripheral pulses 2+ throughout GI Inspection: Yes normal to inspection, No Abdominal wall edema and No distended Palpation (GI): Soft to palpation, not firm, nontender, no guarding and not rigid Auscultation: normal bowel sounds Skin Other: 2cm by 2cm area of ulceration on anterior aspect of right lower calf. Surrounding erythema and mild warmth. Smaller areas of skin break down surrounding ulceration. FROM. NVI. Neuro Cranial nerves: Yes Equal, round and reactive pupils present Course Course Course Narrative: This is an RME done by OLIVA Gonsalves: Additional HPI, ROS, PE not included below will be deferred to primary provider. 88 yo female with pmh anxiety, mitral insufficiency, osteoporosis, PVD presenting with open wound to R leg x 2 weeks. Reports wound has been draining purulent fluid. Appearance: Alert.? Oriented X3.? No acute cardiopulmonary distress distress.? Head: Normocephalic, atraumatic, no step-offs or deformities Neck: Normal inspection.? Neck supple.? CVS: Pulses normal.? Respiratory: No respiratory distress.? Abdomen: Soft and nontender.? Skin: ? Normal skin color. Extremities: 5/5 strength to bilateral upper and lower extremities. Open wound to R lower leg, covered with bandage. Neuro: Oriented X 3.? No motor deficit.? No sensory deficit. Reevaluation(s) Reevaluation #1: Patient is afebrile and hemodynamically stable. Discussed that patient's wound is ulceration which will be slow to heal due to PVD. Re-dressed wound. Discussed dressing changes and to avoid bandages to area due to adhesive. Ordered for Cefuroxime BID for 7 days due to surrounding cellulitis changes. Referred to wound care for follow up. Return precautions given Plan: Discharge to home with PCP and wound care follow up Discharge Plan Discharge Clinical Impression: Cellulitis, Ulcer of right leg Patient Disposition: Home, Self-Care Instructions: Cellulitis (DC) Additional Instructions: As we discussed, you were seen today for an ulcer to your right leg. You should elevate your leg as much as possible. Change the bandages twice a day and keep in clean with soap and water. Take the antibiotic twice a day for 7 days. Call to make an appointment with the wound center on Wednesday01/10/2024. Return to the emergency department for: Worsening swelling, redness or pain Prescriptions: New cefuroxime axetil 500 mg tablet 500 mg PO BID 7 Days Qty: 14 0RF No Action alendronate [Fosamax] 70 mg tablet 70 mg PO QWEEK 90 Days Qty: 13 3RF mirtazapine 30 mg tablet 30 mg PO BEDTIME Qty: 90 2RF topiramate 25 mg tablet 25 mg PO BID Qty: 180 2RF Paxlovid 150-100 mg tablets,dose pack See Rx Instructions PO PER PKG DIR 5 Days Qty: 20 0RF Rx Instructions: PO PER PKG DIR nirmatrelvit 150 mg with Ritonavir 100 mg BID multivitamin Tablet 1 tab PO DAILY glucosamine sulfate [Glucosamine] 500 mg tablet 500 mg PO DAILY Rx Instructions: administer with a meal ascorbic acid (vitamin C) 500 mg tablet,chewable 500 mg PO DAILY omega-3 fatty acids [Fish Oil Concentrate] 1,000 mg capsule 1,000 mg PO DAILY cholecalciferol (vitamin D3) 25 mcg (1,000 unit) capsule 25 mcg PO DAILY calcium carbonate 600 mg calcium (1,500 mg) tablet 600 mg PO DAILY aspirin [Adult Aspirin Regimen] 81 mg tablet,delayed release (DR/EC) 81 mg PO DAILY metoprolol succinate 25 mg tablet extended release 24 hr 25 mg PO DAILY fluticasone propionate [Flonase Allergy Relief] 50 mcg/actuation spray,suspension 1 spray intranasal DAILY Qty: 100 0RF Rx Instructions: administer into each nostril Referrals: [facility] [place] Wound Care Management [Provider Group] - 2 days (Call to make appointment in 2 days ) Print Language: Bolivian
[2024-01-07 18:00] VITALS: BP 141/77; PULSE 72; RESP 17; TEMP 36.3; O2SAT 99
[2024-01-07] MEDS: cefuroxime axetiL 500 MG TABLET PO (20:05)
[2024-01-07 20:20] VITALS: BP 136/88; PULSE 76; RESP 18; TEMP 36.6; O2SAT 99
== END 2024-01-07 20:27 | disposition home or self-care (01) ==
PROVIDERS: Emergency Provider Emergency Medicine; PCP Internal Medicine
DX: L03.115 Cellulitis of right lower limb (principal); L97.219 Non-pressure chronic ulcer of right calf with unspecified severity
CPT/HCPCS: 99283

== ENCOUNTER 2024-01-19 12:53 | Outpatient (RCR) | payer MEDICARE, SELFPAY | END 2024-02-25 09:28 | disposition home or self-care (01) | LOC: HO.WCC 12:53 | PROVIDERS: PCP Internal Medicine; Visit Provider Surgery | DX: S81.811D Laceration without foreign body, right lower leg, subsequent encounter (principal); I73.9 Peripheral vascular disease, unspecified; L98.8 Other specified disorders of the skin and subcutaneous tissue; R60.0 Localized edema; X58.XXXD Exposure to other specified factors, subsequent encounter | CPT/HCPCS: 99212; 99213 ==

== ENCOUNTER 2024-05-16 15:22 | Outpatient (AMB) | payer MEDICARE, SELFPAY ==
[2024-05-16 15:24] VITALS: BP 132/62; PULSE 82; O2SAT 96; BMI 21.6
--- NOTE | 2024-05-16 15:24 | A.OFFPC_ITS ---
Vital Signs 05/16/24 15:24 Height 4 ft 9 in Weight 100 lb BMI 21.6 BP 132/62 Blood Pressure Location Lt brachial Position Sitting Pulse 82 Pulse Source Pulse Oximeter Pulse Oximetry (%) 96 Oxygen Delivery Method Room Air Intake Visit Reasons: Follow Up Batch Analyst Required: No Accompanied by: Spouse Allergies erythromycin base Allergy (Unknown, Verified 05/16/24 15:24) Unknown trazodone Allergy (Unknown, Verified 05/16/24 15:24) Unknown Tobacco use date assessed: 07/06/23 Fall risk assessment: 2 + Falls in past year Last assessed Fall Risk: 05/16/24 Dental Screening Dental Screen Date: 05/16/24 Did you have a dental visit in the last 12 months?: Yes Did you have a dental problem in the last 6 months where you did not have access to dental care?: No Was dental information given to patient?: Patient has dentist HPI Follow Up HPI Details 89-year-old female with a history of ost eoporosis generalized anxiety disorder last seen in 07/24/2023. Patient is here for follow-up. 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 Conservative management advised compression stockings echocardiogram in 03/24/2023 revealed hyperdynamic left ventricular systolic function left ventricular ejection fraction of more than 70% normal RV. Patient had an ER visit in 01/07/2024 having ulcer on the right leg did see wound care.. Patient wanted to have the ears checked as her hearing aid is not working well. 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 Hyperparathyroidism Hearing loss Hypertrophic cardiomyopathy Peripheral vascular disease Osteoporosis Surgical History History of myringotomy History of colonoscopy Family History Father Leukemia Mother Dementia Stroke Social History Housing: House Alcohol intake: former Patient Tobacco Use Status: Never used Tobacco Tobacco use type: Cigarette e-Cigarette/Vaping Use: Never Used Second Hand Smoke Exposure: No service: No Current occupational status: retired Cognitive needs: No Hearing needs: Yes Vision needs: Yes Questionnaire PHQ-9 Over the last 2 weeks, how often have you been bothered by any of the following problems? 1. Little interest or pleasure in doing things: not at all 2. Feeling down, depressed, or hopeless: not at all 3. Trouble falling or staying asleep, or sleeping too much: not at all 4. Feeling tired or having little energy: not at all 5. Poor appetite or overeating: not at all 6. Feeling bad about yourself - or that you are a failure or have let yourself or your family down: not at all 7. Trouble concentrating on things, such as reading the newspaper or watching television: not at all 8. Moving or speaking so slowly that other people could have noticed. Or the opposite - being so fidgety or restless that you have been moving around a lot more than usual: not at all 9. Thoughts that you would be better off or of hurting yourself in some way: not at all Total score: 0 Depression Screening Interpretation: Negative Depression Screening Done: Yes 88750 - PHQ-9 Billing: Yes Source: Developed by Drs. Ronald Rosenbaum, Camilla Hedrick, Herb Rock and colleagues, with an educational maritza from [employer]. Thrive Questionnaire Date Thrive assessed: 12/30/22 AUDIT C Alcohol Use Questionnaire (AUDIT-C) 3. How often do you have six or more drinks on one occasion?: Never Total Score: 0 NIYA-7 AMB Questionnaire NIYA-7 Date NIYA - 7 assessed: 07/06/23 Source: Developed by Drs. Ronald Rosenbaum, Camilla Hedrick, Herb Rock and colleagues, with an educational maritza from [employer]. Physical exam (Primary Care) Vital Signs: Last Vital Signs Pulse 82 05/16/24 15:24 BP 132/62 05/16/24 15:24 Pulse Ox 96 05/16/24 15:24 Oxygen Delivery Method Room Air 05/16/24 15:24 BMI result Body Mass Index 21.6 Tobacco/Smoking Status: Tobacco use Status Tobacco use date assessed 07/06/23 05/16/24 15:31 Patient Tobacco Use Status Never used Tobacco 05/16/24 15:31 Tobacco use type Cigarette 05/16/24 15:31 e-Cigarette/Vaping Use Never Used 05/16/24 15:31 PHQ-9: PHQ-9 Score PHQ-9: Total score 0 05/16/24 15:31 Depression Screening Interpretation: Negative Thrive Assessment: Date of Thrive Assessment Date Thrive assessed 12/30/22 05/16/24 15:31 Const Other: impacted cerument bilateral General: alert; No acute distress Eyes Conjunctivae: conjunctivae normal Resp Auscultation: clear to auscultation bilaterally Cardio Rate: regular rate Rhythm: regular rhythm GI Inspection: Yes normal to inspection Extrem General: Yes normal to inspection and No edema Office Procedures Cerumen Removal From which ear canal was the cerumen removed: bilateral Removal: otoscope w/curette and cerumen loop/spoon Notes: patient tolerated procedure well, no complications and ear canal clear [id number] Wax Removal by Spoon/Curette Coding Level of Care Code Est Pt Level 4 (26592) Diagnoses Peripheral vascular disease I73.9 Age-related osteoporosis without current pathological fracture M81.0 Osteoporosis type: age-related Presence of current pathological fracture: without current pathological fracture Nonrheumatic mitral valve regurgitation I34.0 Cardiac valve disease etiology: nonrheumatic Generalized anxiety disorder F41.1 Impacted cerumen of both ears H61.23 CPT Codes Office Procedure - CPT: 18192-[place] Wax Removal by Spoon/Curette ([id number]) Additional Codes PHQ-9 - 19578 - PHQ-9 Billing: Yes ([id number]) Assessment & Plan Assessment & Plan (1) Peripheral vascular disease: Code(s): I73.9 - Peripheral vascular disease, unspecified Category: Medical Plan: When sitting down elevate the legs, exercise, and support stockings patient has seen the vascular surgeon and has had workup. (2) Osteoporosis: Comment: February 2020, April 2022 Code(s): M81.0 - Age-related osteoporosis without current pathological fracture Category: Medical Qualifiers: Osteoporosis type: age-related Presence of current pathological fracture: without current pathological fracture Qualified Code(s): M81.0 - Age- related osteoporosis without current pathological fracture Plan: Discussed with the patient about osteoporosis on alendronate 70 mg per week and recommended to have repeat bone density. (3) Mitral insufficiency: Code(s): I34.0 - Nonrheumatic mitral (valve) insufficiency Category: Medical Qualifiers: Cardiac valve disease etiology: nonrheumatic Qualified Code(s): I34.0 - Nonrheumatic mitral (valve) insufficiency Plan: Periodic echocardiogram to monitor. This is done by Cardiology (4) Generalized anxiety disorder: Code(s): F41.1 - Generalized anxiety disorder Category: Medical Plan: Continue with present medication. (5) Impacted cerumen of both ears: Code(s): H61.23 - Impacted cerumen, bilateral Category: Medical Plan: scoop and no irrigation, TM intact Orders: Orders Erythrocyte Sedimentation Rate Today I73.9 - Peripheral vascular disease, un specified C Reactive Protein Today I73.9 - Peripheral vascular disease, unspecified Comprehensive Met. Panel Today I73.9 - Peripheral vascular disease, unspecified Thyroid Stimulating Hormone Today I73.9 - Peripheral vascular disease, unspecified Free T4 (Free Thyroxine) Today I73.9 - Peripheral vascular disease, unspecified Vitamin B12 and Folate Today I73.9 - Peripheral vascular disease, unspecified XR DEXA axial skeleton Today I73.9 - Peripheral vascular disease, unspecified, M81.0 - Age-related osteoporosis without current pathological fracture B Type Natriuretic Peptide Today I42.2 - Other hypertrophic cardiomyopathy Complete Blood Count Auto Diff Today I73.9 - Peripheral vascular disease, unspecified UA CC w/rflx Micro + Cult Today I73.9 - Peripheral vascular disease, unspecified, R30.0 - Dysuria Vitamin D 25-OH Total Today I73.9 - Peripheral vascular disease, unspecified Lipid Panel Today E78.00 - Pure hypercholesterolemia, unspecified, I73.9 - Peripheral vascular disease, unspecified Medications: Discontinued cefuroxime axetil Discontinued Reason: Patient Completed Course 500 mg PO BID 7 days 14 tabs 0RF
== END 2024-05-16 16:03 | disposition home or self-care (01) ==
PROVIDERS: PCP Internal Medicine; Visit Provider Internal Medicine
DX: I73.9 Peripheral vascular disease, unspecified (principal); M81.0 Age-related osteoporosis without current pathological fracture; I34.0 Nonrheumatic mitral (valve) insufficiency; F41.1 Generalized anxiety disorder; H61.23 Impacted cerumen, bilateral

== ENCOUNTER → 2024-05-16 15:22 | Outpatient (BNVA) | payer MEDICARE, SELFPAY | PROVIDERS: PCP Internal Medicine; Visit Provider Internal Medicine | DX: I73.9 Peripheral vascular disease, unspecified (principal); M81.0 Age-related osteoporosis without current pathological fracture; I34.0 Nonrheumatic mitral (valve) insufficiency; F41.1 Generalized anxiety disorder; H61.23 Impacted cerumen, bilateral | CPT/HCPCS: 69210; 96127; 99212 ==

== ENCOUNTER 2024-07-25 13:54 | Outpatient (REF) | payer MEDICARE, SELFPAY ==
--- NOTE | ~2024-07-25 | MM_ITS ---
EXAMINATION: DXA BONE DENSITY AXIAL HISTORY: Estrogen deficiency TECHNIQUE: [employer] Dual energy absorptiometry (DEXA) of the lumbar spine, total left hip, and femoral neck was performed. COMPARISON: Comparison is made with the prior examination dated 04/30/2022. FINDINGS: The bone mineral density of the lumbar spine is 1.164 with a T-score of -0.1, and a Z-score of 2.6. This represents a BMD change of -3.2% compared to the prior exam. This is statistically significant. The bone mineral density of the left total hip is 0.645 with a T-score of -2.9, and a Z-score of 0.0. This represents BMD change of 27.7% compared to the prior exam. This is statistically significant. The bone mineral density of the left femoral neck is 0.566 with a T-score of -3.4, and a Z-score of -0.4. This represents BMD change of 20.7% compared to the prior exam. MM/XR DEXA axial skeleton IMPRESSION: Based on bone mineral density, and according to World Health Organization (WHO) criteria, the diagnosis is consistent with osteoporosis. All bone density values are in grams per centimeter squared (g/cm2). Statistically, 68% of repeat scans fall within 1 SD (+/- 0.010 g/cm2 for AP spine L1-L4) and 1 SD (+/- 0.012 g/cm2 for femur total) Electronically signed by: Ronald Trevino MD 07/25/2024 03:02 PM [facility]
== END 2024-07-25 13:55 | disposition home or self-care (01) ==
LOC: HO.MAMMO 13:54
PROVIDERS: PCP Internal Medicine; Visit Provider Internal Medicine
DX: M81.0 Age-related osteoporosis without current pathological fracture (principal); I73.9 Peripheral vascular disease, unspecified
CPT/HCPCS: 77080

== ENCOUNTER → 2024-07-25 14:00 | Outpatient (BNV) | payer MEDICARE, SELFPAY | PROVIDERS: PCP Internal Medicine; Visit Provider Radiology Diagnostic Radiology | DX: E28.39 Other primary ovarian failure (principal) | CPT/HCPCS: 77080 ==

== ENCOUNTER 2024-10-18 07:08 | Outpatient (REF) | payer MEDICARE, SELFPAY ==
[2024-10-18 07:25] LABS: MANUAL DIFF FLAG NO
[2024-10-18 07:56] LABS: Basophils Percent Auto 0.4 % (0-2); Eosinophils Absolute Auto 0.1 X10*3/uL (0.0-0.4); Eosinophils Percent Auto 1.3 % (0-4); Hemoglobin 14.4 g/dl (12.0-16.0); Imm Gran Abs Auto 0.02 X10*3/uL (0.00-0.03); Imm Gran Pct Auto 0.2 % (0.0-0.4); Lymphocytes Percent Auto 11.7 % (20-40); Mean Corpuscular HGB Conc 33.5 g/dl (31.0-35.0); Mean Corpuscular Hemoglobin 32.7 pg (27.0-33.0); Mean Corpuscular Volume 97.7 fL (80.0-98.0); Mean Platelet Volume 9.7 fL (9.4-12.3); Monocytes Absolute Auto 0.6 X10*3/uL (0.1-1.2); Monocytes Percent Auto 6.9 % (2-11); Neutrophils Absolute Auto 6.7 x10*3/uL (2.0-8.3); Neutrophils Percent Auto 79.5 % (45-73); Platelet Count 206 X10*3/uL (160-400); Red Cell Distribution Width 13.2 % (11.0-16.0); White Blood Count 8.4 X10*3/uL (4.8-10.8)
[2024-10-18 08:14] LABS: B Type Natriuretic Peptide 502 pg/mL (<100)
[2024-10-18 08:22] LABS: Alanine Aminotransferase 26 U/L (0-31); Albumin Level 4.4 g/dL (3.5-5.0); Alkaline Phosphatase 76 U/L (39-117); Anion Gap 12 (12-20); Aspartate Amino Transferase 40 U/L (5-31); Bilirubin Total 0.7 mg/dL (0.0-1.0); Blood Urea Nitrogen 17 mg/dL (9-16); C Reactive Protein 0.84 mg/dL (< or = 0.50); Calcium 9.7 mg/dL (8.4-10.2); Carbon Dioxide 28 mmol/L (22-29); Chloride 104 mmol/L (96-108); Cholesterol 185 mg/dL (<200); Estimated Glomerular Filt Rate 54; Glucose Random 108 mg/dL (60-115); HDL Cholesterol 83 mg/dL (>40); LDL Cholesterol Calculated 88 mg/dL (<100); Potassium 4.2 mmol/L (3.3-5.1); Sodium 140 mmol/L (135-145); Total Protein 7.1 g/dL (6.5-8.0); Triglycerides 74 mg/dL (<150)
[2024-10-18 08:42] LABS: Free T4 (Free Thyroxine) 0.97 ng/dL (0.71-1.85); Thyroid Stimulating Hormone 0.91 uIU/mL (0.32-4.0); Vitamin D 25-OH Total 46.9 ng/mL (>30)
[2024-10-18 08:54] LABS: Folate 15.3 ng/mL (> or = 4.0); Vitamin B12 655 pg/mL (200-900)
[2024-10-18 08:59] LABS: Erythrocyte Sedimentation Rate 7 MM/HR (0-20)
[2024-10-18 09:42] LABS: Appearance Urine Clear; Color Urine Yellow; Glucose Urine UA Negative (Negative); Leukocyte Esterase Urine Negative (Negative); Nitrite Urine Negative (Negative); PH 6.5 (5.0-9.0); Urine Blood Negative (Negative); Urine Ketones Negative (Negative); Urine Protein Negative (Neg-Trace)
== END 2024-10-18 07:09 | disposition home or self-care (01) ==
LOC: HO.LAB 07:08
PROVIDERS: PCP Internal Medicine; Visit Provider Internal Medicine
DX: I42.2 Other hypertrophic cardiomyopathy (principal); I73.9 Peripheral vascular disease, unspecified; R30.0 Dysuria; E78.00 Pure hypercholesterolemia, unspecified
CPT/HCPCS: 36415; 80053; 80061; 81003; 82306; 82607; 82746; 83880; 84439; 84443; 85025; 85652; 86140

== ENCOUNTER 2024-11-14 13:15 | Outpatient (AMB) | payer MEDICARE, SELFPAY ==
[2024-11-14 13:20] VITALS: BP 130/68; PULSE 74; O2SAT 97; BMI 20.8
--- NOTE | 2024-11-14 13:20 | MHC.PC.OV ---
Vital Signs 11/14/24 13:20 Height 4 ft 9 in Weight 96 lb BMI 20.8 BP 130/68 Blood Pressure Location Lt brachial Position Sitting Pulse 74 Pulse Source Pulse Oximeter Pulse Oximetry (%) 97 Oxygen Delivery Method Room Air Intake Visit Reasons: Mitral insufficiency, peripheral vascular disease Allergies erythromycin base Allergy (Unknown, Verified 11/14/24 13:21) Unknown trazodone Allergy (Unknown, Verified 11/14/24 13:21) Unknown Medication List - Last Reconciled 11/14/24 by Nayeli Whitehead MD alendronate (Fosamax) 70 mg PO QWEEK 90 days ascorbic acid (vitamin C) 500 mg PO DAILY aspirin (Adult Aspirin Regimen) 81 mg PO DAILY calcium carbonate 600 mg PO DAILY chlorpheniramine maleate 4 mg PO Q8H PRN cholecalciferol (vitamin D3) 25 mcg PO DAILY fluticasone propionate 50 mcg/actuation (Flonase Allergy Relief) 1 spray intranasal DAILY glucosamine sulfate (Glucosamine) 500 mg PO DAILY metoprolol succinate ER 25 mg PO DAILY mirtazapine 30 mg PO BEDTIME multivitamin 1 tab PO DAILY omega-3 fatty acids (Fish Oil Concentrate) 1,000 mg PO DAILY topiramate 25 mg PO BID Tobacco use date assessed: 07/06/23 Fall risk assessment: No Falls in past year Last assessed Fall Risk: 11/14/24 Dental Screening Dental Screen Date: 11/14/24 Did you have a dental visit in the last 12 months?: Yes Did you have a dental problem in the last 6 months where you did not have access to dental care?: No Was dental information given to patient?: Patient has dentist [facility] Medical History Impact with sports equipment Fluid level behind tympanic membrane 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 Hyperparathyroidism Hearing loss Hypertrophic cardiomyopathy Peripheral vascular disease Osteoporosis Surgical History History of myringotomy History of colonoscopy Family History Father Leukemia Mother Dementia Stroke Social History Housing: House Alcohol intake: former Patient Tobacco Use Status: Never used Tobacco Tobacco use type: Cigarette e-Cigarette/Vaping Use: Never Used Second Hand Smoke Exposure: No service: No Current occupational status: retired Cognitive needs: No Hearing needs: Yes Vision needs: Yes Questionnaire Thrive Questionnaire Date Thrive assessed: 11/09/24 I am a: Patient What is your living situation today?: I have a steady place to live Within the past 12 months, did the food you bought not last and you didn't have the money to get more?: Never true Within the past 12 months, did you worry whether your food would run out before you got money to buy more?: Never true Do you have trouble paying for medicines?: No Do you have trouble getting transportation to medical appointments?: No Do you have trouble paying your heating and electricity bill?: No Do you have trouble taking care of your child, family member or friend?: No Do you have trouble with day-to-day activities such as bathing, preparing meals, shopping, managing finances, etc.?: No Are you currently unemployed and looking for a job?: No Are you interested in more education?: No Please select the resources that you would like help with: None Currently or been in a relationship where the following occur: No concerns reported THRIVE Score: 0 AUDIT C Alcohol Use Questionnaire (AUDIT-C) 1. How often do you have a drink containing alcohol?: Never Total Score: 0 NIYA-7 AMB Questionnaire NIYA-7 Date NIYA - 7 assessed: 11/14/24 Feeling nervous, anxious, or on edge: 0 = Not at all Not being able to stop or control worryin = Not at all Worrying too much about different things: 0 = Not at all Trouble relaxin = Not at all Being so restless that it is hard to sit still: 0 = Not at all Becoming easily annoyed or irritable: 0 = Not at all Feeling afraid as if something awful might happen: 0 = Not at all Total NIYA-7 score (0-4 normal; 5-9 mild; 10-14 moderate; 15-21 severe): 0 Source: Developed by Drs. Ronald Rosenbaum, Camilla Hedrick, Herb Rock and colleagues, with an educational maritza from [employer]. Physical exam (Primary Care) Vital Signs: Last Vital Signs Pulse 74 11/14/24 13:20 BP 130/68 11/14/24 13:20 Pulse Ox 97 11/14/24 13:20 Oxygen Delivery Method Room Air 11/14/24 13:20 BMI result Body Mass Index 20.8 Tobacco/Smoking Status: Tobacco use Status Tobacco use date assessed 07/06/23 11/14/24 13:22 Patient Tobacco Use Status Never used Tobacco 11/14/24 13:22 Tobacco use type Cigarette 11/14/24 13:22 e-Cigarette/Vaping Use Never Used 11/14/24 13:22 Thrive Assessment: Date of Thrive Assessment Date Thrive assessed 11/09/24 11/14/24 13:22 Currently or been in a relationship where the following occur: No concerns reported Const General: alert; No acute distress Eyes Conjunctivae: conjunctivae normal Resp Auscultation: clear to auscultation bilaterally Cardio Rate: regular rate Rhythm: regular rhythm GI Inspection: Yes normal to inspection Extrem General: Yes normal to inspection and No edema Coding Level of Care Code Est Pt Level 4 (83881) Complex EM visit Add On G2211 Diagnoses Hypertrophic cardiomyopathy I42.2 Age-related osteoporosis without current pathological fracture M81.0 Osteoporosis type: age-related Presence of current pathological fracture: without current pathological fracture Generalized anxiety disorder F41.1 Hearing loss H91.90 LFT elevation R79.89 Assessment & Plan Assessment & Plan (1) Hypertrophic cardiomyopathy: Comment: Echo hyperdynamic more than 70% EF moderate septal asymmetric hypertrophy February 2018 Code(s): I42.2 - Other hypertrophic cardiomyopathy Category: Medical Plan: Continue to follow-up with cardiology and July 2024 last echocardiogram (2) Osteoporosis: Comment: February 2020, April Code(s): M81.0 - Age-related osteoporosis without current pathological fracture Category: Medical Qualifiers: Osteoporosis type: age-related Presence of current pathological fracture: without current pathological fracture Qualified Code(s): M81.0 - Age-related osteoporosis without current pathological fracture Plan: July 2024 bone density. (3) Generalized anxiety disorder: Code(s): F41.1 - Generalized anxiety disorder Category: Medical Plan: Continue with present medication (4) Hearing loss: Code(s): H91.90 - Unspecified hearing loss, unspecified ear Category: Medical Plan: Hearing test received and has advised ENT referral due to a symmetric hearing loss (5) LFT elevation: Code(s): R79.89 - Other specified abnormal findings of blood chemistry Category: Medical Plan: Discussed about repeating the blood work and ultrasound of the abdomen Plan History of Present Illness The patient is an 89-year-old female presenting for a follow-up concerning multiple chronic conditions and evaluations of recent medical tests. She has a history of osteoporosis, with a recent assessment in July 2024 showing varied bone density results; the spine exhibited a minor decrease while the hip improved. Her cardiovascular status was evaluated with an echocardiogram showing normal heart function with some valve insufficiencies. ENT concerns are echoed by an abnormal middle ear status leading to asymmetric hearing loss in the right ear, with a pending referral for ENT consultation. 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 Liver function tests showed mild elevation which remains under investigation, though not currently deemed critical. The patient also monitors an elevated blood glucose level and is cautious with dietary choices to manage it. She reports using loratadine for allergy management. Health Maintenance - Bone density scan reviewed with mixed results; spine decreased, hip improved. - Echocardiogram results: EF 65-70%, mild mitral and tricuspid valve insufficiency. - Blood glucose and liver function levels monitored; dietary management advised. - Referral for ENT due to hearing asymmetry and abnormal middle ear status. - Counseling on diet: Emphasis on plant proteins, fruits, and minimizing high-fat/cholesterol intake. Social History - Reports adherence to dietary changes favoring plant proteins and fruits. - Uses dietary supplements such as vitamin D3. - Describes challenges with obtaining timely medical appointments. - Manages allergy symptoms with loratadine, obtained easily from retailers like [email or web address]. Review of Systems - Cardiovascular: Reports no incidents since last follow-up. - Respiratory: Denies shortness of breath or chest discomfort. - Ear, Nose, Throat: Reports asymmetric hearing loss, fluid sensation in the right ear. - Gastrointestinal: Denies any abdominal pain but acknowledges recent liver function concerns. - Neurological: Denies focal neurological deficits. - General: Denies significant weight gain; reports mild weight loss. Physical Exam - Cardiovascular- Heart sounds regular, mild valve insufficiency noted. - Pulmonary- Lungs clear on auscultation. - Ear- Minimal earwax observed; slight bruising noted on external examination. - General- Well-nourished, without acute distress. Results - Labs: Normal blood count, electrolytes, renal function; glucose level 108 mg/dL. - Liver function: Mildly elevated, BMP high at 502. - Echocardiogram: EF between 65-70%, mild to moderate LV hypertrophy, normal RV cavity, mild insufficiency in mitral and tricuspid valves. - Ultrasound (June): Chronic thrombus in the left SSV. Plan I will continue to monitor the patient?s osteoporosis and cardiac conditions with regular follow-ups and appropriate preventive strategies. The patient is encouraged to maintain vitamin D3 supplementation due to observable benefits to hip bone density. Recent echocardiogram findings should be closely monitored, with no immediate cardiology interventions deemed necessary. Due to the reported asymmetric hearing loss, an ENT referral is prioritized, while continued use of loratadine is suggested for allergy management. Dietary adjustments are advised to address elevated liver function and blood glucose levels, and regular monitoring will guide further evaluations. Avoidance of Fosamax and careful management of osteoporosis is reinforced given historical use. If liver function remains elevated, further diagnostic workup, including imaging, may be considered. Patient was informed and verbally consented to the use of an ambient scribe for clinic note documentation during this visit. Discussion Notes During today's consultation, we discussed the continuation of current management for osteoporosis, with particular emphasis on the beneficial effects of vitamin D3 on her bone density. I reassured the patient regarding her echocardiogram findings, indicating no immediate concerns needing intervention but suggested routine cardiology follow-ups. I emphasized the importance of proceeding with the ENT referral due to the hearing issues and advised continued use of allergy medication like loratadine to address potential causes. Dietary changes were encouraged to manage slight elevations in liver function and blood glucose levels. The patient was informed that should her liver function remain persistently elevated, further evaluations might be necessary. I also discussed safely managing osteoporosis without returning to Fosamax, stressing careful follow-up care. Patient Instructions - Continue taking vitamin D3 supplements as previously directed. - Follow up with cardiology as scheduled and monitor for any heart-related symptoms. - Proceed with the ENT referral promptly due to hearing concerns. - Continue loratadine for allergy management if needed. - Prioritize a diet rich in plant proteins and low in saturated fats. - Monitor blood glucose levels; avoid excessive intake of sweets. - Report any new or worsening symptoms to the office promptly. Orders: Referrals Ear/Nose/Throat Referral H90.5 - Unspecified sensorineural hearing loss Medications: New chlorpheniramine maleate do not exceed 2 doses per 24 hrs 4 mg PO Q8H PRN 30 tabs 0RF itching H90.5 - Unspecified sensorineural hearing loss Discontinued alendronate (Fosamax) Discontinued Reason: Patient Completed Course 70 mg PO QWEEK 90 days 13 tabs 3RF M81.0 - Age-related osteoporosis without current pathological fracture
--- OUTSIDE RECORDS SUMMARY | 2024-11-14 14:22 | XMS_ITS | Clinical Summary ---
Author Organization [address] [facility] Address [address] [place] [address] Phone Care Team Providers Care Electronics Tech Name Role Phone Nayeli Whitehead MD Primary Care Provider [phone] Allergies Active Allergy Reactions Criticality Noted Date Comments Erythromycin 06/14/2012 Erythromycin [Akne-mycin] Other 06/14/2012 Trazodone & Diet [Kdc:cinnamon+crataegus Oxyacantha+ginkgo+griffonia+cocoa+... ] Trazodone & Diet [Kdc:cinnamon+crataegus Oxyacantha+ginkgo+griffonia+cocoa+... ] Medications alendronate (FOSAMAX) 70 mg tablet Take 70 mg by mouth every 7 days. Active ascorbic acid, vitamin C, 500 mg capsule Take by mouth daily. Active aspirin 81 mg EC tablet Take 81 mg by mouth daily. Active topiramate (TOPAMAX) 25 mg tablet Take 2 Tabs by mouth daily for 180 days. 12/14/2018 Active omega-3 fatty acids 500 mg capsule Take by mouth daily. Active dbamovbd-esv-gz on-FA-vit K-lut (Spectravite Women 50 Plus) 8 mg iron-400 mcg-50 mcg tablet Take by mouth daily. Active mirtazapine (REMERON) 30 mg tablet Take 1 Tab by mouth at bedtime for 30 days. 12/14/2018 Active metoprolol succinate (TOPROL-XL) 25 mg 24 hr tablet TAKE ONE TABLET BY MOUTH EVERY DAY 03/16/2024 Active glucosamine sulfate (Glucosamine) 500 mg tablet Take by mouth daily. Active cholecalciferol (VITAMIN D-3) 25 mcg (1,000 unit) tablet Take by mouth daily. Active calcium carbonate (CALCIUM 600 ORAL) Take by mouth daily. Active Active Problems Problem Noted Date Diagnosed Date Superficial thrombosis of left lower extremity 1 Edema 04/12/2024 Overview (05/04/2024): Last Assessment & Plan: The patient has a mild but chronic bilateral lower extremity edema. The patient states that her symptoms have been present for more than 1 year. She denies any recent change in her symptoms. At this point, we will order an echocardiogram to rule out any underlying structural heart disease that may be associated with her chronic lower extremity edema. Will also order a lower extremity venous insufficiency study to rule out venous insufficiency as a cause of her symptoms. Peripheral vascular disease ([facility] V24) 2021 Hypertension 02/03/2021 Overview (05/04/2024): Last Assessment & Plan: The patient has a history of arterial hypertension. The patient's blood pressure today was noted to be well controlled. We'll continue the current antihypertensive medication regimen. Mitral valve insufficiency 02/03/2021 Overview (05/04/2024): Last Assessment & Plan: The patient has a history of mitral valve insufficiency. On her echocardiogram from March 2023 she was found to have a mild mitral valve insufficiency. She was also noted to have a mobile echodensity associated to the anterior mitral valve leaflet which has been also noted on her prior echocardiograms done in our office (2020 and 2019) and that may represent a torn cord. Hypothyroidism 06/14/2012 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 Bipolar affective ([facility] V24, [facility] V28) 12/2009 Surgical History Surgery Date Site/Laterality Comments COLONOSCOPY PROCEDURE: HISTORICAL COLONOSCOPY OTHER SURGICAL HISTORY PROCEDURE: HISTORY OTHER; COMMENT: myringotomy Medical History Medical History Date Comments Congestive heart failure, unspecified 06/14/2012 DX:Congestive heart failure, unspecified Unspecified hypothyroidism 06/14/2012 DX:Un specified hypothyroidism 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 DX:Idiop athic osteoporosis Hypertrophic cardiomyopathy ([facility] V24, [facility] V28) 06/14/2012 DX:Hypertrophic cardiomyopat hy (HCC) Essential hypertension DX:Essent ial hypertension Generalized anxiety disorder DX: Generalized anxiety disorder Sensorineural hearing loss DX:Se nsorineural hearing loss Hyperparathyroidism ([facility] V24) DX:Hyperparathyroidism (HCC) Mild major neurocognitive di sorder probably due to Parkinson's disease, without behavioral disturbance ([facility]) DX: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 Parkinson's disease, without behavioral disturbance (HCC) Osteoporosis DX:Osteoporosis Family History Medical History Relation Name Comments Leukemia Father Dementia Mother Stroke Mother Other: patient declines Other Relation Name Status Comments Father Mother Other Social History Tobacco Use Types Packs/Day Years Used Date Smoking Tobacco: Never Smokeless Tobacco: Never Alcohol Use Standard Drinks/Week Comments Yes 1 (1 standard drink = 0.6 oz pur e alcohol) Comments Unknown Sex and Gender Information Value Date Recorded Sex Assigned at Not on file Legal Sex Female 4:23 PM EST Gender Identity Not on file Sexual Orientation Not on file Obstetrics History Last Filed Vital Signs Vital Sign Reading Time Taken Comments Blood Pressure 130/80 07/11/2024 1:35 PM EST Pulse 83 05/03/2024 1:40 PM EDT Temperature - - Respiratory Rate - - Oxygen Saturation - - Inhaled Oxygen Concentration - - Weight 43.1 kg (95 lb) 07/11/2024 1:35 PM EST Height 144.8 cm (4' 9 ) 07/11/2024 1:35 PM EST Body Mass Index 20.56 07/11/2024 1:35 PM EST Plan of Treatment Upcoming Encounters Date Type Department Care Team (Late st Contact Info) Description 04/04/2025 1:30 PM EDT Office Visit [facility] [address] [place] [address] Russ Soler MD [address] [place] [address] [address] [place] [address] Health Maintenance Due Date Last Done Comments Zoster Vaccines (1 of 2) 1987 Cholesterol Screening (Lipid Panel) 06/13/2022 Depression Screening 06/13/2022 Falls Risk Assessment 06/13/2022 Hypertension/CHF/CAD Annual BMP Blood Test 06/13/2022 Medicare Annual Wellness Visit 06/13/2022 Osteoporosis Screening (Bone Density Screening) 06/13/2022 Social Influencers of Health Screening 06/13/2022 COVID-19 Vaccine ( season) 2024 08/08/2020, 07/18/2020 Influenza Vaccine (Season Ended) 2025 10/14/2022, 04/10/2021, 04/27/2020, Additional history exists DTaP,Tdap,and Td Vaccines (5 - Td or Tdap) 10/14/2033 10/15/2023, 03/01/2017, 02/28/2017, Additional history exists Pneumococcal Vaccine: 50+ Years Completed 04/07/2018, 07/03/2015 RSV Immunization Adult Patients Completed 05/20/2023 HIB Vaccines Aged Out No longer eligi ble based on patient's age to complete this topic HPV Vaccines Aged Out No longer eligi ble based on patient's age to complete this topic Hepatitis A Vaccines Aged Out No long er eligible based on patient's age to complete this topic Hepatitis B Vaccines Aged Out No long er eligible based on patient's age to complete this topic IPV Vaccines Aged Out No longer eligi ble based on patient's age to complete this topic MMR Vaccines Aged Out No longer eligi ble based on patient's age to complete this topic Meningococcal ACWY Vaccine Aged Out N o longer eligible based on patient's age to complete this topic Meningococcal B Vaccine Aged Out No l onger eligible based on patient's age to complete this topic RSV Immunization Patients Under 20 months Aged Out No longer eligible based on patient's age to complete this topic Varicella Vaccines Aged Out No longer eligible based on patient's age to complete this topic Insurance MEDICARE [facility] Care Teams Electronics Tech Relationship Specialty Start Date End Date Nayeli Whitehead MD [address] [place] [address] [address] [facility] [place] [address] PCP - General 07/13/12
== END 2024-11-14 14:21 | disposition home or self-care (01) ==
LOC: HO.HMCH 13:16
PROVIDERS: PCP Internal Medicine; Visit Provider Internal Medicine
DX: I42.2 Other hypertrophic cardiomyopathy (principal); M81.0 Age-related osteoporosis without current pathological fracture; F41.1 Generalized anxiety disorder; H91.90 Unspecified hearing loss, unspecified ear; R79.89 Other specified abnormal findings of blood chemistry

== ENCOUNTER → 2024-11-14 13:15 | Outpatient (BNVA) | payer MEDICARE, SELFPAY | PROVIDERS: PCP Internal Medicine; Visit Provider Internal Medicine | DX: I42.2 Other hypertrophic cardiomyopathy (principal); M81.0 Age-related osteoporosis without current pathological fracture; F41.1 Generalized anxiety disorder; H91.90 Unspecified hearing loss, unspecified ear; R79.89 Other specified abnormal findings of blood chemistry | CPT/HCPCS: 99212 ==

== ENCOUNTER 2024-12-06 10:17 | Outpatient (REF) | payer MEDICARE, SELFPAY ==
--- NOTE | ~2024-12-06 | US_ITS ---
CLINICAL HISTORY: R79.89 - ELEVATED LIVER FUNCTION TESTS US abdomen complete Comparison: None Findings: Examination is limited by bowel gas and body habitus. The visualized pancreas is normal. The aorta and inferior vena cava are normal caliber. The liver is normal in size and echotexture. There is no intrahepatic bile duct dilatation. The common duct is 4.0 mm in diameter. The gallbladder is normal. There is no sonographic Longoria sign. The main portal vein is antegrade. The right kidney is 9.4 cm in length. 2 mm kidney stone. The left kidney is 7.7 cm in length. The spleen is normal. No ascites. IMPRESSION: Liver is unremarkable. Small right kidney stone. This document has been electronically signed by: Elisa Siegel MD on 12/06/2024 14:57:27
--- OUTSIDE RECORDS SUMMARY | 2024-12-06 10:55 | XMS_ITS | Clinical Summary ---
Author Organization [address] [facility] Address [address] [place] [address] Phone Care Team Providers Care Tawer Name Role Phone Nayeli Whitehead MD Primary Care Provider [phone] Allergies Active Allergy Reactions Criticality Noted Date [...] mg capsule Take by mouth daily. Active dsyvdjlb-xuu-hv on-FA-vit K-lut (Spectravite Women 50 Plus) 8 [...] cause of her symptoms. Peripheral vascular disease ([facility] V24) 2021 Hypertension 02/03/2021 Overview (05/04/2024): Last [...] Hypothyroidism 06/14/2012 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 Bipolar affective ([facility] V24, [facility] V28) 12/2009 Surgical History Surgery Date Site/Laterality Comments COLONOSCOPY PROCEDURE: HISTORICAL COLONOSCOPY OTHER SURGICAL HISTORY PROCEDURE: HISTORY OTHER; COMMENT: myringotomy Medical History Medical History Date Comments Congestive heart failure, unspecified 06/14/2012 DX:Congestive heart failure, unspecified Unspecified hypothyroidism 06/14/2012 DX:Un specified hypothyroidism 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 DX:Idiop athic osteoporosis Hypertrophic cardiomyopathy ([facility] V24, [facility] V28) 06/14/2012 DX:Hypertrophic cardiomyopat hy (HCC) Essential hypertension DX:Essent ial hypertension Generalized anxiety disorder DX: Generalized anxiety disorder Sensorineural hearing loss DX:Se nsorineural hearing loss Hyperparathyroidism ([facility] V24) DX:Hyperparathyroidism (HCC) Mild major neurocognitive di sorder probably due to Parkinson's disease, without behavioral disturbance ([facility]) DX: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 [...] Description 04/04/2025 1:30 PM EDT Office Visit [facility] [address] [place] [address] Russ Soler MD [address] [place] [address] [address] [place] [address] Health Maintenance Due Date Last Done Comments [...] age to complete this topic Insurance MEDICARE [facility] Care Teams Tawer Relationship Specialty Start Date End Date Nayeli Whitehead MD [address] [place] [address] [address] [facility] [place] [address] PCP - General 07/13/12
== END 2024-12-06 10:18 | disposition home or self-care (01) ==
LOC: HO.US 10:17
PROVIDERS: PCP Internal Medicine; Visit Provider Internal Medicine
DX: R79.89 Other specified abnormal findings of blood chemistry (principal)
CPT/HCPCS: 76700

== ENCOUNTER → 2024-12-06 10:20 | Outpatient (BNV) | payer MEDICARE, SELFPAY | PROVIDERS: PCP Internal Medicine; Visit Provider Nuclear Medicine | DX: N20.0 Calculus of kidney (principal) | CPT/HCPCS: 76700 ==

== ENCOUNTER 2024-12-08 14:48 | Emergency (ER) | payer MEDICARE, SELFPAY ==
[2024-12-08 15:11] VITALS: BP 146/84; BP 160/94; PULSE 77; PULSE 78; RESP 16; TEMP 36.8; O2SAT 96; BMI 20.3
--- NOTE | 2024-12-08 16:05 | ED.GENADULT ---
HPI - General Adult General Chief complaint: Fall Stated complaint: FALL,+HS,1 INCH LAC,+SOFT COLLAR Time Seen by Provider: 12/08/24 14:59 History of Present Illness ED Provider: Dr. Ruff HPI narrative: 89 y/o F patient; PMH HOCM, parkinson's disease, hyperparathyroidism, PVD; presents from [facility] via EMS with report of mechanical fall. The patient states she was walking when she tripped and struck the back of her head on the corner of a wall. The patient did not pass out. She is not on blood thinners. She denies any complaints or pain at this time. She otherwise denies: fever or chills, SOB, cough/congestion, nausea/vomiting, abdominal pain. Tetanus is not up to date. Related Data Home Medications ?Medication ?Instructions ?Recorded ?Confirmed ascorbic acid (vitamin C) 500 mg 500 mg PO DAILY 05/13/20 11/14/24 chewable tablet aspirin 81 mg tablet,delayed 81 mg PO DAILY 05/13/20 11/14/24 release (Adult Aspirin Regimen) calcium carbonate 600 mg PO DAILY 05/13/20 11/14/24 cholecalciferol (vitamin D3) 25 25 mcg PO DAILY 05/13/20 11/14/24 mcg (1,000 unit) capsule glucosamine sulfate 500 mg tablet 500 mg PO DAILY 05/13/20 11/14/24 (Glucosamine) metoprolol succinate 25 mg 25 mg PO DAILY 05/13/20 11/14/24 tablet,extended release 24 hr multivitamin 1 tab PO DAILY 05/13/20 11/14/24 omega-3 fatty acids 1,000 mg 1,000 mg PO DAILY 05/13/20 11/14/24 capsule (Fish Oil Concentrate) Previous Rx's ?Medication ?Instructions ?Recorded fluticasone propionate 50 1 spray intranasal DAILY #100 mL 08/06/22 mcg/actuation nasal spray,suspension (Flonase Allergy Relief) chlorpheniramine maleate 4 mg 4 mg PO Q8H PRN itching #30 tabs 11/14/24 tablet mirtazapine 30 mg tablet 30 mg PO BEDTIME #90 caps 12/05/24 topiramate 25 mg tablet 25 mg PO BID #180 caps 12/05/24 Allergies Allergy/AdvReac Type Severity Reaction Status Date / Time erythromycin base Allergy Unknown Unknown Verified 12/08/24 15:13 trazodone Allergy Unknown Unknown Verified 12/08/24 15:13 Review of Systems Review of Systems: Yes all other systems are reviewed and are negative Neurologic: Denies Abnormal speech present and Denies Sensory deficit (Neuro) COUNTS INCLUDE 234 BEDS AT THE [facility] Past Medical History Attestation statement: The following information was validated with the patient. 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 Hyperparathyroidism Hearing loss Hypertrophic cardiomyopathy Peripheral vascular disease Osteoporosis Surgical History History of myringotomy History of colonoscopy Family History Family History Father Leukemia Mother Dementia Stroke Social History Social History Housing: House Alcohol intake: former Patient Tobacco Use Status: Never used Tobacco Tobacco use type: Cigarette Smoked in Last 30 Days: No e-Cigarette/Vaping Use: Never Used Second Hand Smoke Exposure: No Use of substances other than those prescribed or required for medical reasons: No Advance Directives: No Advance Directives Information Provided: Yes Do you have a plan to hurt others: No Plan service: No Current occupational status: retired Cognitive needs: No Hearing needs: Yes Vision needs: Yes Physical Exam ED Vital Signs: Vital Signs - 24 hr 12/08/24 15:11 12/08/24 16:08 Temperature 98.2 F 98.2 F Pulse Rate 78 78 Respiratory Rate 16 16 Blood Pressure 146/84 H 146/84 H Pulse Oximetry 96 96 Oxygen Delivery Method Room Air BMI result Body Mass Index 20.3 Patient is afebrile and hemodynamically stable. Const General: cooperative and no acute distress Orientation/consciousness: patient oriented x3 HENMT Other: Small superficial laceration to right occipital scalp with mild gapping Eyes General: appearance normal, both eyes and all related structures Pupils: Equal, round and reactive pupils present EOM: EOMs intact bilaterally Neck Neck: Yes normal visual inspection, Yes full ROM, Yes supple and No tender Chest Chest palpation & inspection: normal inspection of the chest and normal palpation of entire chest wall Resp Effort & Inspection: normal respiratory effort, able to speak in complete sentences, no cough and no respiratory distress Auscultation: clear to auscultation bilaterally Cardio Rate: regular rate Rhythm: regular rhythm Peripheral pulses: Peripheral pulses 2+ throughout GI Inspection: Yes normal to inspection, No Abdominal wall edema and No distended Palpation (GI): Soft to palpation, not firm, nontender, no guarding and not rigid Auscultation: normal bowel sounds Back/Spine/Pelvis Back: No back tenderness Neuro General: patient oriented x3 and gait normal Cranial nerves: Yes Equal, round and reactive pupils present Cognition (Neuro): normal cognition Speech: No Abnormal speech present Motor exam (neuro): 5/5 motor strength present throughout Sensory Exam: No Sensory deficit (Neuro) Coordination: [id number]-rr-[id number] test normal, jwpv-gp-[id number] test normal and Normal rapid alternating movements of the distal upper extremity present (Neuro) Extrem Other: 1+ bilateral lower extremity edema Course Course Course Narrative: Patient is afebrile and hemodynamically stable. She is neurologically intact. Ambulating without difficulty at baseline without assisting device. Patient states only one fall last year, she lives at [facility], and both patient/ feel comfortable with plan to return home. Patient denies any complaints. She is neurologically intact and ambulating without difficulty. I discussed CT scan with her and her . No indication for CT imaging at this time. Discussed with patient and that she will need to monitor for signs of concussion as that is a clinical diagnosis that I cannot determine at this time. Please see procedure note for x3 maik applied to occipital laceration. Staple removal in 5 - 7 days. Tetanus updated. Plan: Discharge to home with PCP follow up Return precautions given Procedures Laceration Laceration 1: Site: scalp Side (If applicable): right Size (cm): 2 Description: linear Depth: simple, single layer Local Anesthetic: other anesthetic (none) Pre-repair: wound explored and irrigated extensively Skin layer closed with: other (maik x3) Discharge Plan Discharge Clinical Impression: Fall, Laceration of scalp Patient Disposition: Home, Self-Care Instructions: Laceration (DC), Concussion (ED) Additional Instructions: You were seen today after a fall in which you got a cut on the back of your head. We discussed that CT scans were not indicated as your neurological exam was normal. Unlikely that you had bleeding on your brain or broken skull bones. Your cut was closed with 3 maik that you will need to have removed in 5 - 7 days. You can return to this emergency department, go to your primary doctor, or any urgent care. We discussed that you will need to watch for signs of a concussion like: Nausea/vomiting Headache that does not get better with tylenol Further falls Dizziness/lightheadedness Please make an appointment to be seen by your primary doctor in the next 2 - 3 days for a check up. Your tetanus was updated today 12/08/2024. Prescriptions: No Action topiramate 25 mg tablet 25 mg PO BID Qty: 180 2RF mirtazapine 30 mg tablet 30 mg PO BEDTIME Qty: 90 2RF multivitamin Tablet 1 tab PO DAILY glucosamine sulfate [Glucosamine] 500 mg tablet 500 mg PO DAILY Rx Instructions: administer with a meal ascorbic acid (vitamin C) 500 mg tablet,chewable 500 mg PO DAILY omega-3 fatty acids [Fish Oil Concentrate] 1,000 mg capsule 1,000 mg PO DAILY cholecalciferol (vitamin D3) 25 mcg (1,000 unit) capsule 25 mcg PO DAILY calcium carbonate 600 mg calcium (1,500 mg) tablet 600 mg PO DAILY aspirin [Adult Aspirin Regimen] 81 mg tablet,delayed release (DR/EC) 81 mg PO DAILY metoprolol succinate 25 mg tablet extended release 24 hr 25 mg PO DAILY fluticasone propionate [Flonase Allergy Relief] 50 mcg/actuation spray,suspension 1 spray intranasal DAILY Qty: 100 0RF Rx Instructions: administer into each nostril chlorpheniramine maleate 4 mg tablet 4 mg PO Q8H PRN (Reason: itching) Qty: 30 0RF Rx Instructions: do not exceed 2 doses per 24 hrs Print Language: Slovak
[2024-12-08 16:08] VITALS: BP 146/84; PULSE 78; RESP 16; TEMP 36.8; O2SAT 96
[2024-12-08] MEDS: Diphth,Pertus(ACell),Tet Adult 0.5 ML SYRINGE IM (17:32)
[2024-12-08 17:43] VITALS: BP 134/71; PULSE 77; RESP 16; TEMP 36.8; O2SAT 96
== END 2024-12-08 17:57 | disposition home or self-care (01) ==
PROVIDERS: Emergency Provider Emergency Medicine; PCP Internal Medicine
DX: S01.01XA Laceration without foreign body of scalp, initial encounter (principal); R51.9 Headache, unspecified; W01.10XA Fall on same level from slipping, tripping and stumbling with subsequent striking against unspecified object, initial encounter; Z91.81 History of falling; Y93.9 Activity, unspecified; Y92.9 Unspecified place or not applicable; Y99.8 Other external cause status; Z23 Encounter for immunization
CPT/HCPCS: 12001; 90471; 90715; 99284

== ENCOUNTER 2024-12-13 09:31 | Outpatient (AMB) | payer MEDICARE, SELFPAY ==
[2024-12-13 10:06] VITALS: BP 128/66; PULSE 68; TEMP 36.4; O2SAT 99; BMI 20.1
--- NOTE | 2024-12-13 10:06 | MHC.OFFWIV ---
Intake Vital Signs 12/13/24 10:06 Height 4 ft 10 in Weight 96 lb BMI 20.1 BP 128/66 Blood Pressure Location Lt brachial Position Sitting Pulse 68 Pulse Source Pulse Oximeter Temp 97.5 F Temp Source Oral Pulse Oximetry (%) 99 Oxygen Delivery Method Room Air Intake Visit Reasons: EP removal of maik on head Intake Note: Pt presents to the office today for c/o staple removal on her head. Pt states she had the maik placed on Wednesday12/08/24 at [facility] ED. Patient Tobacco Use Status: Never used Tobacco Allergies erythromycin base Allergy (Unknown, Verified 12/13/24 10:10) Unknown trazodone Allergy (Unknown, Verified 12/13/24 10:10) Unknown HPI HPI Comments History of Present Illness Details History of Present Illness - The patient is an 89-year-old female presenting with a head laceration requiring staple removal. - The injury occurred due to a fall 5 days ago, resulting in a head laceration that required three maik. - The maik were placed in the emergency department, and the patient received an updated tetanus vaccination at that time. - Since the incident, the patient reports no headaches or dizziness. Physical Exam General: Cooperative, healthy appearing, comfortable, no acute distress and well developed Orientation: Patient oriented x3 Limitations: No limitations Head: Three maik present, scab in place, normal to inspection otherwise Ears: Hearing grossly normal bilaterally Nose: Normal External nose present Face and sinus: Normal facial exam Eyes: Appearance normal, both eyes and all related structures Neck: Normal visual inspection and Yes full ROM Respiratory: Normal respiratory effort and able to speak in complete sentences. 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 Hyperparathyroidism Hearing loss Hypertrophic cardiomyopathy Peripheral vascular disease Osteoporosis Surgical History History of myringotomy History of colonoscopy Family History Father Leukemia Mother Dementia Stroke Social History Housing: House Alcohol intake: former Patient Tobacco Use Status: Never used Tobacco Tobacco use type: Cigarette e-Cigarette/Vaping Use: Never Used Second Hand Smoke Exposure: No service: No Current occupational status: retired Cognitive needs: No Hearing needs: Yes Vision needs: Yes Review of Systems Const All systems reviewed & are unremarkable except as noted in HPI and below Physical Exam Vital Signs: Last Vital Signs Temp 97.5 F 12/13/24 10:06 Pulse 68 12/13/24 10:06 BP 128/66 12/13/24 10:06 Pulse Ox 99 12/13/24 10:06 Oxygen Delivery Method Room Air 12/13/24 10:06 BMI result Body Mass Index 20.1 Assessment & Plan Assessment & Plan (1) Encounter for staple removal: Code(s): Z48.02 - Encounter for removal of sutures Plan: - Remove the three maik from the scalp, ensuring minimal discomfort to the patient. - Advise the patient to gently wash the area to prevent irritation and promote healing. - Monitor for any signs of infection or complications post-removal. Patient was informed and verbally consented to the use of an ambient scribe for clinic note documentation during this visit. Coding Level of Care Code Est Pt Level 3 (82429) Diagnoses Encounter for staple removal Z48.02
--- OUTSIDE RECORDS SUMMARY | 2024-12-13 10:24 | XMS_ITS | Clinical Summary ---
Author Organization [address] [facility] Address [address] [place] [address] Phone Care Team Providers Care Group Sales Coordinator Name Role Phone Nayeli Whitehead MD Primary Care Provider [phone] Allergies Active Allergy Reactions Criticality Noted Date [...] Tabs by mouth daily for 180 days. 9 Active omega-3 fatty acids 500 mg capsule Take by mouth daily. Active gcuaniac-ihq-f estelita-FA-vit K-lut (Spectravite Women 50 Plus) 8 mg iron-400 mcg-50 mcg tablet Take by mouth daily. Active mirtazapine (REMERON) 30 mg tablet Take 1 Tab by mouth at bedtime for 30 days. 9 Active glucosamine sulfate (Glucosamine) 500 mg tablet Take by mouth daily. Active cholecalcifero l (VITAMIN D-3) 25 mcg (1,000 unit) tablet Take by mouth daily. Active calcium carbonate (CALCIUM 600 ORAL) Take by mouth daily. Active metoprolol succinate (TOPROL-XL) 25 mg 24 hr tablet TAKE ONE TABLET BY MOUTH EVERY DAY 90 tablet 5 Active metoprolol succinate (TOPROL-XL) 25 mg 24 hr tablet TAKE ONE TABLET BY MOUTH EVERY DAY 4 12/09/19 25 Discontinued Active Problems Problem Noted Date Diagnosed Date [...] cause of her symptoms. 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 Bipolar affective ([facility] V24, [facility] V28) 12/2009 Surgical History Surgery Date Site/Laterality Comments COLONOSCOPY PROCEDURE: HISTORICAL COLONOSCOPY OTHER SURGICAL HISTORY PROCEDURE: HISTORY OTHER; COMMENT: myringotomy Medical History Medical History Date Comments Congestive heart failure, unspecified 06/14/2012 DX:Congestive heart failure, unspecified Unspecified hypothyroidism 06/14/2012 DX:Un specified hypothyroidism 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 DX:Idiop athic osteoporosis Hypertrophic cardiomyopathy ([facility], [facility] V28) 06/14/2012 DX:Hypertrophic cardiomyopat hy ([facility]) Essential hypertension DX:Essent ial hypertension Generalized anxiety disorder DX: Generalized anxiety disorder Sensorineural hearing loss DX:Se nsorineural hearing loss Hyperparathyroidism ([facility] V[facility]) DX:Hyperparathyroidism (HCC) Mild major neurocognitive di sorder probably due to Parkinson's disease, without behavioral disturbance ([facility]) DX: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 Parkinson's disease, without behavioral disturbance ([facility]) Osteoporosis DX:Osteoporosis Family History Medical History Relation [...] Description 04/04/2025 1:30 PM EDT Office Visit [facility] [address] [facility] [address] [place] [address] Russ Soler MD [address] [place] [address] [address] [place] [address] Health Maintenance Due Date Last Done Comments [...] age to complete this topic Insurance MEDICARE [facility] Care Teams Group Sales Coordinator Relationship Specialty Start Date End Date Nayeli Whitehead MD [address] [place] [address] [address] [facility] [place] [address] PCP - General 07/13/12
== END 2024-12-13 10:21 | disposition home or self-care (01) ==
PROVIDERS: PCP Internal Medicine; Visit Provider Physician Assistant
DX: Z48.02 Encounter for removal of sutures (principal)

== ENCOUNTER → 2024-12-13 09:31 | Outpatient (BNVA) | payer MEDICARE, SELFPAY | PROVIDERS: PCP Internal Medicine; Visit Provider Physician Assistant | DX: Z48.02 Encounter for removal of sutures (principal) | CPT/HCPCS: 99212 ==

== ENCOUNTER 2025-05-22 11:17 | Outpatient (AMB) | payer MEDICARE, SELFPAY ==
[2025-05-22 11:34] VITALS: BP 122/80; PULSE 93; TEMP 36.3; O2SAT 97; BMI 19.7
--- NOTE | 2025-05-22 11:34 | MHC.PC.OV ---
Vital Signs 05/22/25 11:34 Height 4 ft 10 in Weight 94 lb 6 oz BMI 19.7 BP 122/80 Blood Pressure Location Lt brachial Position Sitting Pulse 93 Pulse Source Pulse Oximeter Temp 97.3 F Temp Source Temporal Artery Scan Pulse Oximetry (%) 97 Oxygen Delivery Method Room Air Intake Visit Reasons: Follow Up Accompanied by: Spouse Allergies erythromycin base Allergy (Unknown, Verified 05/22/25 11:37) Unknown trazodone Allergy (Unknown, Verified 05/22/25 11:37) Unknown Medication List - Last Reconciled 05/22/25 by Nayeli Whitehead MD ascorbic acid (vitamin C) 500 mg PO DAILY aspirin (Adult Aspirin Regimen) 81 mg PO DAILY calcium carbonate 600 mg PO DAILY chlorpheniramine maleate 4 mg PO Q8H PRN cholecalciferol (vitamin D3) 25 mcg PO DAILY fluticasone propionate 50 mcg/actuation (Flonase Allergy Relief) 1 spray intranasal DAILY glucosamine sulfate (Glucosamine) 500 mg PO DAILY metoprolol succinate ER 25 mg PO DAILY mirtazapine 30 mg PO BEDTIME multivitamin 1 tab PO DAILY omega-3 fatty acids (Fish Oil Concentrate) 1,000 mg PO DAILY topiramate 25 mg PO BID Tobacco use date assessed: 05/22/25 Fall risk assessment: No Falls in past year Last assessed Fall Risk: 05/22/25 Dental Screening Dental Screen Date: 05/22/25 Did you have a dental visit in the last 12 months?: Yes Did you have a dental problem in the last 6 months where you did not have access to dental care?: No Was dental information given to patient?: Patient has dentist HPI HPI Comments History of Present Illness Details History of Present Illness The patient is an 89-year-old female presenting for a follow-up visit. Her medical history is significant for hypertrophic cardiomyopathy, for which she is followed by cardiology with serial echocardiograms. An echocardiogram in July 2024 showed an EF of 65-70%, and a small mobile echo density on the anterior mitral valve with mild mitral insufficiency, which has been unchanged since 2020. Her cardiomyopathy is associated with thickened heart malone, likely secondary to a history of hypertension, which is currently controlled. In December, the patient experienced a fall that resulted in a head laceration requiring maik; she was seen in urgent care on December 13 for staple removal. Other chronic conditions include osteoporosis with the last bone density scan in July 2024, peripheral vascular disease, anxiety disorder, and stable dizziness and pain. Recent lab work from November showed a normal complete blood count, electrolytes, and renal function. Findings included a mildly elevated blood sugar of 108 mg/dL, mildly elevated liver function tests, BNP of 502, C-reactive protein of 4, and an LDL of 88 mg/dL. An abdominal ultrasound performed for the elevated LFTs was unremarkable for the liver. B12, folic acid, and thyroid levels were within normal limits. The patient is on metoprolol. She received her flu shot in mid-April and recently completed the two-shot series for shingles. She had a cold approximately four weeks ago but is now recovered. Health Maintenance The patient is up-to-date with her influenza vaccine, received in mid-April, and has completed her 2-dose shingles vaccine series as of last month. Follow-up blood work has been ordered to be completed before her next 6-month visit. She has been counseled on the importance of staying active and well-hydrated, particularly in light of her fall history and bone weakness. Social History - Functional status: The patient had a fall in December and has known weakness in her bones. - Activity level: Advised to remain active. - Nutrition: The patient reports difficulty with drinking enough fluids but was advised to stay well-hydrated. Results - Labs (November): - Complete blood count: Normal, no anemia. - Electrolytes and renal function: Normal. - Blood sugar: 108 mg/dL (mildly elevated). - Liver function tests: Mildly elevated. - BNP: 502. - C-reactive protein: 4. - LDL cholesterol: 88 mg/dL. - Vitamin B12, folic acid, and thyroid function: Within normal limits. - Imaging: - Echocardiogram (July 2024): Showed an ejection fraction of 65-70%, a small mobile echo density on the anterior mitral valve (stable since 2020), and thickened heart malone. - Abdominal ultrasound: Unremarkable liver. 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 Hyperparathyroidism Hearing loss Hypertrophic cardiomyopathy Peripheral vascular disease Osteoporosis Surgical History History of myringotomy History of colonoscopy Family History Father Leukemia Mother Dementia Stroke Social History Housing: House Alcohol intake: former Patient Tobacco Use Status: Never used Tobacco Tobacco use type: Cigarette e-Cigarette/Vaping Use: Never Used Second Hand Smoke Exposure: No service: No Current occupational status: retired Cognitive needs: No Hearing needs: Yes Vision needs: Yes Questionnaire PHQ-9 Over the last 2 weeks, how often have you been bothered by any of the following problems? 1. Little interest or pleasure in doing things: not at all 2. Feeling down, depressed, or hopeless: not at all 3. Trouble falling or staying asleep, or sleeping too much: not at all 4. Feeling tired or having little energy: not at all 5. Poor appetite or overeating: not at all 6. Feeling bad about yourself - or that you are a failure or have let yourself or your family down: not at all 7. Trouble concentrating on things, such as reading the newspaper or watching television: not at all 8. Moving or speaking so slowly that other people could have noticed. Or the opposite - being so fidgety or restless that you have been moving around a lot more than usual: not at all 9. Thoughts that you would be better off or of hurting yourself in some way: not at all Total score: 0 Depression Screening Interpretation: Negative Depression Screening Done: Yes Source: Developed by Drs. Ronald Rosenbaum, Camilla Hedrick, Herb Rock and colleagues, with an educational maritza from [employer]. Thrive Questionnaire Date Thrive assessed: 11/09/24 I am a: Patient What is your living situation today?: I have a steady place to live Within the past 12 months, did the food you bought not last and you didn't have the money to get more?: Never true Within the past 12 months, did you worry whether your food would run out before you got money to buy more?: Never true Do you have trouble paying for medicines?: No Do you have trouble getting transportation to medical appointments?: No Do you have trouble paying your heating and electricity bill?: No Do you have trouble taking care of your child, family member or friend?: No Do you have trouble with day-to-day activities such as bathing, preparing meals, shopping, managing finances, etc.?: No Are you currently unemployed and looking for a job?: No Are you interested in more education?: No Please select the resources that you would like help with: None Currently or been in a relationship where the following occur: No concerns reported THRIVE Score: 0 AUDIT C Alcohol Use Questionnaire (AUDIT-C) 1. How often do you have a drink containing alcohol?: Never 3. How often do you have six or more drinks on one occasion?: Never Total Score: 0 NIYA-7 AMB Questionnaire NIYA-7 Date NIYA - 7 assessed: 11/14/24 Feeling nervous, anxious, or on edge: 0 = Not at all Not being able to stop or control worryin = Not at all Worrying too much about different things: 0 = Not at all Trouble relaxin = Not at all Being so restless that it is hard to sit still: 0 = Not at all Becoming easily annoyed or irritable: 0 = Not at all Feeling afraid as if something awful might happen: 0 = Not at all Total NIYA-7 score (0-4 normal; 5-9 mild; 10-14 moderate; 15-21 severe): 0 Source: Developed by Drs. Ronald Rosenbaum, Camilla Hedrick, Herb Rock and colleagues, with an educational maritza from [employer]. Review of Systems Narrative Review of Systems - Constitutional: Denies fever. - Vision: Denies any problems with vision. - Respiratory: Reports breathing is fine. Denies cough. - Gastrointestinal: Denies constipation, irregular bowel movements, and blood in stools. - Genitourinary: Denies any problems with urination. - Neurological: Reports a history of dizziness, which is unchanged. Physical exam (Primary Care) Vital Signs: Last Vital Signs Temp 97.3 F 05/22/25 11:34 Pulse 93 05/22/25 11:34 BP 122/80 05/22/25 11:34 Pulse Ox 97 05/22/25 11:34 Oxygen Delivery Method Room Air 05/22/25 11:34 BMI result Body Mass Index 19.7 Tobacco/Smoking Status: Tobacco use Status Tobacco use date assessed 05/22/25 05/22/25 11:40 Patient Tobacco Use Status Never used Tobacco 05/22/25 11:37 Tobacco use type Cigarette 05/22/25 11:37 e-Cigarette/Vaping Use Never Used 05/22/25 11:37 PHQ-9: PHQ-9 Score PHQ-9: Total score 0 05/22/25 11:40 Depression Screening Interpretation: Negative Thrive Assessment: Date of Thrive Assessment Date Thrive assessed 11/09/24 05/22/25 11:37 Currently or been in a relationship where the following occur: No concerns reported Narrative Physical Exam - Cardiovascular: On auscultation, heart rhythm is noted to be very regular. - Respiratory: Clear to auscultation bilaterally. - Head/Ears/Nose/Throat: Otoscopic exam reveals patent ear canals with a small amount of cerumen on the sides, which was removed during the visit. Const General: alert; No acute distress HENMT Other: impacted cerumen bilateral Eyes Conjunctivae: conjunctivae normal Resp Auscultation: clear to auscultation bilaterally Cardio Rate: regular rate Rhythm: regular rhythm GI Inspection: Yes normal to inspection Extrem General: Yes normal to inspection and No edema Office Procedures Cerumen Removal From which ear canal was the cerumen removed: bilateral Removal: otoscope w/curette and cerumen loop/spoon Notes: patient tolerated procedure well, no complications and ear canal clear [id number] Wax Removal by Spoon/Curette Coding Level of Care Code Est Pt Level 4 (59669) Complex EM visit Add On G2211 Diagnoses Hypertrophic cardiomyopathy I42.2 Nonrheumatic mitral valve regurgitation I34.0 Cardiac valve disease etiology: nonrheumatic Age-related osteoporosis without current pathological fracture M81.0 Osteoporosis type: age-related Presence of current pathological fracture: without current pathological fracture Right renal stone N20.0 Generalized anxiety disorder F41.1 Impacted cerumen of both ears H61.23 CPT Codes Office Procedure - CPT: 64178-[id number] Wax Removal by Spoon/Curette ([id number]) Assessment & Plan Assessment & Plan (1) Hypertrophic cardiomyopathy: Comment: Echo hyperdynamic more than 70% EF moderate septal asymmetric hypertrophy February 2018 Code(s): I42.2 - Other hypertrophic cardiomyopathy Category: Medical Plan: Patient is being followed up by Cardiology with serial echocardiogram (2) Mitral insufficiency: Code(s): I34.0 - Nonrheumatic mitral (valve) insufficiency Category: Medical Qualifiers: Cardiac valve disease etiology: nonrheumatic Qualified Code(s): I34.0 - Nonrheumatic mitral (valve) insufficiency Plan: Serial echocardiogram asMonitored by Cardiology continue to control with beta huseyin (3) Osteoporosis: Comment: February 2020, April Code(s): M81.0 - Age-related osteoporosis without current pathological fracture Category: Medical Qualifiers: Osteoporosis type: age-related Presence of current pathological fracture: without current pathological fracture Qualified Code(s): M81.0 - Age-related osteoporosis without current pathological fracture Plan: Calcium vitamin-D as well as keeping active (4) Right renal stone: Comment: December 2024 2 mm Code(s): N20.0 - Calculus of kidney Category: Medical Plan: Keep well hydrated (5) Generalized anxiety disorder: Code(s): F41.1 - Generalized anxiety disorder Category: Medical Plan: Continue with present medications (6) Impacted cerumen of both ears: Code(s): H61.23 - Impacted cerumen, bilateral Category: Medical Plan: scoop used and no irrigation TM intact Plan Plan Patient was informed and verbally consented to the use of an ambient scribe for clinic note documentation during this visit. 1. Hypertrophic Cardiomyopathy The patient's hypertrophic cardiomyopathy is stable and being monitored by cardiology. The condition is characterized by thickened heart malone, likely due to chronic hypertension. A small mobile echo density on the anterior mitral valve with mild insufficiency has been stable since 2020 and will continue to be monitored with serial echocardiograms. Although a cardiac MRI was previously recommended by a cardiovascular rn, the current plan is to continue with serial echocardiography. The plan includes continuing metoprolol, ensuring blood pressure remains controlled, and maintaining follow-up with cardiology. 2. Hypertension The patient's hypertension is noted to be controlled and is a likely contributor to her hypertrophic cardiomyopathy. Plan is to continue current medications, including metoprolol, to maintain blood pressure control. 3. Osteoporosis The patient has a known history of osteoporosis, with her last bone density scan in July 2024. She has been advised to continue taking calcium and vitamin D supplements and to remain active to support bone health. 4. History Of Fall The patient had a fall in December resulting in a head laceration that required maik. This event highlights her fall risk, which is compounded by her known bone weakness. Counseling was provided on the importance of staying active and well-hydrated to help maintain strength and prevent future falls. Discussion Notes I reviewed the cardiology notes with the patient, explaining that they are monitoring her heart for a condition involving thickened malone, likely from long-standing high blood pressure. I clarified that the small mobile echo density seen on her mitral valve has been stable since 2019 and is being monitored with serial echocardiograms, which is why she does not require further immediate tests. We confirmed her breathing is fine and her only cardiac medication is metoprolol. I informed her that I have ordered blood work to be done before her next 6-month visit to continue monitoring her health. During the ear exam, I noted that her ear canal was open despite some wax, which I then removed. We discussed her fall in December and stressed the importance of staying well-hydrated and active to maintain her strength, especially given her weak bones. We reviewed her immunizations, confirming she is up-to-date on her flu shot and just completed the 2-shot shingles vaccine series. We discussed medication refills and agreed she would send a message if she runs low before her next visit. Patient Instructions - Continue taking all your current medications, including metoprolol. - If you are running low on your medications, please send us a message through the portal. - Keep taking your calcium and vitamin D supplements. - It is very important to drink plenty of fluids every day to stay hydrated. - Try to stay as active as possible. - Please get your blood work done sometime before your next 6-month appointment. - Continue to see your heart doctor (cardiovascular rn) for your regular check-ups. - You are up to date on your flu shot and have completed the shingles vaccine series. Orders: Orders NT Pro B Type Natriuretic Pept 6 Months I42.2 - Other hypertrophic cardiomyopathy Comprehensive Met. Panel 6 Months I42.2 - Other hypertrophic cardiomyopathy Thyroid Stimulating Hormone 6 Months I42.2 - Other hypertrophic cardiomyopathy Vitamin D 25-OH Total 6 Months I42.2 - Other hypertrophic cardiomyopathy UA CC w/rflx Micro + Cult 6 Months I42.2 - Other hypertrophic cardiomyopathy, R30.0 - Dysuria Complete Blood Count Auto Diff 6 Months I42.2 - Other hypertrophic cardiomyopathy Free T4 (Free Thyroxine) 6 Months I42.2 - Other hypertrophic cardiomyopathy Vitamin B12 and Folate 6 Months I42.2 - Other hypertrophic cardiomyopathy Lipid Panel 6 Months E78.00 - Pure hypercholesterolemia, unspecified, I42.2 - Other hypertrophic cardiomyopathy
== END 2025-05-22 12:02 | disposition home or self-care (01) ==
LOC: HO.HMCH 11:17
PROVIDERS: PCP Internal Medicine; Visit Provider Internal Medicine
DX: I42.2 Other hypertrophic cardiomyopathy (principal); I34.0 Nonrheumatic mitral (valve) insufficiency; M81.0 Age-related osteoporosis without current pathological fracture; N20.0 Calculus of kidney; F41.1 Generalized anxiety disorder; H61.23 Impacted cerumen, bilateral

== ENCOUNTER → 2025-05-22 11:17 | Outpatient (BNVA) | payer MEDICARE, SELFPAY | PROVIDERS: PCP Internal Medicine; Visit Provider Internal Medicine | DX: I10 Essential (primary) hypertension (principal); I42.2 Other hypertrophic cardiomyopathy; I34.0 Nonrheumatic mitral (valve) insufficiency; M81.0 Age-related osteoporosis without current pathological fracture; N20.0 Calculus of kidney; F41.1 Generalized anxiety disorder; H61.23 Impacted cerumen, bilateral; E78.00 Pure hypercholesterolemia, unspecified; R30.0 Dysuria; Z91.81 History of falling | CPT/HCPCS: 69210; 96127; 99212 ==